=== PATIENT | male | born 1985 | race Caucasian/White ===

== ENCOUNTER 2017-02-20 03:45 | Emergency (ER) | payer SELFPAY ==
[~2017-02-20] VITALS: Ht 177.8 cm; Wt 119.2 kg
[2017-02-20 03:49] VITALS: TEMP 36.7; Ht 177.8 cm; Wt 119.2 kg
[2017-02-20] MEDS ORDERED: ONDANSETRON INJ 2 MG/ML 2 ML VIAL IV STA (03:58)
[2017-02-20] MEDS ORDERED: KETOROLAC TROMETHAMINE 30 MG/ML VIAL IV STA (03:58)
[2017-02-20] MEDS ORDERED: MoRPHine SULFATE 4 MG/ML 1 ML CARP\\VIAL IV ONE (04:00)
[2017-02-20] MEDS ORDERED: SODIUM CHLORIDE 0.9% 1000ML 1,000 ML IV ONE (04:00)
[2017-02-20 04:14] LABS: BASO % 0.1 %; BASO ABS # 0.02 K/uL (0-0.2); COMPLETE YES; EOS % 0.3 %; HEMATOCRIT 40.2 % (42-52); IG% 0.2 %; LYMPH % 8.2 %; LYMPH ABS # 1.33 K/uL (1.2-3.4); MEAN CELL VOLUME 85.2 fL (80-100); MEAN CORPUSCULAR HEMOGLOBIN 30.5 pg (25-34); MEAN CORPUSCULAR HGB CONC 35.8 g/dl (32-36); MEAN PLATELET VOLUME 9.6 fL (7.4-10.4); NEUT % 87.2 %; PLATELET COUNT 283 K/uL (130-400); RED BLOOD COUNT 4.72 M/uL (4.7-6.1); WHITE BLOOD COUNT 16.14 K/uL (4.8-10.8)
[2017-02-20 04:16] LABS: URINE APPEARANCE CLEAR (CLEAR); URINE BILIRUBIN NEG (NEG); URINE COLOR YELLOW; URINE NITRITE NEG (NEG); URINE SPECIFIC GRAVITY 1.024 (1.000-1.030); UROBILINOGEN NEG (NEG); ZZUR CULT IF INDIC CLEAN CATCH NO
[2017-02-20 04:22] LABS: MANUAL MICROSCOPIC REQUIRED? NO; REVIEW REQ? NO
[2017-02-20 04:35] LABS: BUN/CREATININE RATIO 7.7 (10-20); CALCIUM 8.8 mg/dl (8.5-10.1); CREATININE 1.58 mg/dl (0.60-1.40); POTASSIUM 3.8 mmol/L (3.5-5.1)
[2017-02-20 04:38] LABS: ALB/GLOB RATIO 0.8 (0.9-2)
--- NOTE | 2017-02-20 05:05 | EMERGENCY ROOM VISIT NOTE ---
History First contact with patient: 03:52 Chief Complaint: KIDNEY STONE Stated Complaint: KIDNEY PAIN,LOWER STOMACH PAIN History of Present Illness The patient is a 31 year old male who presents to the Emergency Room with complaints of acute onset left flank pain that began spontaneously this evening. Patient states that he has a dull 4/10 pain with intermittent episodes of 10/10 pain. The patient does have a history of right-sided kidney stones, but never a left-sided stone. He states this is similar. He is nauseated without vomiting. No chest pain, chest tightness, shortness of breath. The pain is radiating down into his groin. No dysuria. He has not taken anything [id number] for his symptoms. Review of Systems More than 10 systems were reviewed and otherwise negative with the exception of history of present illness. Past Medical/Surgical History History of kidney stones Social History Smoking Status: Never Smoker Occupation Status: employed Current/Historical Medications Scheduled Ondasetron Odt (Zofran Odt), 4 MG SL Q6H Oxycodone Immediate Rel Tab (Roxicodone Ir), 1-2 TAB PO Q6 Tamsulosin Hcl (Flomax), 0.4 MG PO DAILY Physical Exam Vital Signs Date Time Temp Pulse Resp B/P (MAP) Pulse Ox O2 Delivery O2 Flow Rate FiO2 02/20/17 03:49 36.7 126 20 184/117 97 Room Air Physical Exam VITALS: Vitals are noted on the nurse's note and reviewed by myself. Vital signs stable. GENERAL: Well-developed, well-nourished, white male who appears in moderate discomfort. He is pacing around in the emergency department room. NECK: Supple without nuchal rigidity. No lymphadenopathy. No thyromegaly. Cervical spine is nontender. HEART: Regular rate and rhythm without murmurs gallops or rubs. LUNGS: Clear to auscultation bilaterally without wheezes, rales or rhonchi. No retractions or accessory muscle use. ABDOMEN: Positive normal bowel sounds x 4. Soft, nontender, without masses or organomegaly. No guarding or rebound tenderness. No CVA tenderness. MUSCULOSKELETAL: No muscle atrophy, erythema, or edema noted. Full range of motion without joint tenderness in all extremities. Medical Decision & Procedures ER Provider Diagnostic Interpretation: Preliminary Findings Only See Final Report For Complete Findings CT ABDOMEN & PELVIS Without Contrast: 5 mm distal left ureteral calculus causing mild hydroureteronephrosis. Multiple left intrarenal calculi. Hepatic steatosis. Dense material within an otherwise unremarkable appendix. Laboratory Results 02/20/17 04:00 Red Blood Count 4.72, Mean Corpuscular Volume 85.2, Mean Corpuscular Hemoglobin 30.5, Mean Corpuscular Hemoglobin Concent 35.8, Mean Platelet Volume 9.6, Neutrophils (%) (Auto) 87.2, Lymphocytes (%) (Auto) 8.2, Monocytes (%) (Auto) 4.0, Eosinophils (%) (Auto) 0.3, Basophils (%) (Auto) 0.1, Neutrophils # (Auto) 14.06, Lymphocytes # (Auto) 1.33, Monocytes # (Auto) 0.64, Eosinophils # (Auto) 0.05, Basophils # (Auto) 0.02 02/20/17 04:00 Test 02/20/17 04:00 White Blood Count 16.14 K/uL (4.8-10.8) Red Blood Count 4.72 M/uL (4.7-6.1) Hemoglobin 14.4 g/dL (14.0-18.0) Hematocrit 40.2 % (42-52) Mean Corpuscular Volume 85.2 fL (80-100) Mean Corpuscular Hemoglobin 30.5 pg (25-34) Mean Corpuscular Hemoglobin Concent 35.8 g/dl (32-36) Platelet Count 283 K/uL (130-400) Mean Platelet Volume 9.6 fL (7.4-10.4) Neutrophils (%) (Auto) 87.2 % Lymphocytes (%) (Auto) 8.2 % Monocytes (%) (Auto) 4.0 % Eosinophils (%) (Auto) 0.3 % Basophils (%) (Auto) 0.1 % Neutrophils # (Auto) 14.06 K/uL (1.4-6.5) Lymphocytes # (Auto) 1.33 K/uL (1.2-3.4) Monocytes # (Auto) 0.64 K/uL (0.11-0.59) Eosinophils # (Auto) 0.05 K/uL (0-0.5) Basophils # (Auto) 0.02 K/uL (0-0.2) RDW Standard Deviation 37.9 fL (36.4-46.3) RDW Coefficient of Variation 12.3 % (11.5-14.5) Immature Granulocyte % (Auto) 0.2 % Immature Granulocyte # (Auto) 0.04 K/uL (0.00-0.02) Urine Color YELLOW Urine Appearance CLEAR (CLEAR) Urine pH 5.0 (4.5-7.5) Urine Specific [place] 1.024 (1.000-1.030) Urine Protein TRACE (NEG) Urine Glucose (UA) NEG (NEG) Urine Ketones TRACE (NEG) Urine Occult Blood TRACE (NEG) Urine Nitrite NEG (NEG) Urine Bilirubin NEG (NEG) Urine Urobilinogen NEG (NEG) Urine Leukocyte Esterase NEG (NEG) Urine WBC (Auto) 1-5 /hpf (0-5) Urine RBC (Auto) 0-4 /hpf (0-4) Urine Hyaline Casts (Auto) 1-5 /lpf (0-5) Urine Epithelial Cells (Auto) 10-20 /lpf (0-5) Urine Bacteria (Auto) NEG (NEG) Anion Gap 8.0 mmol/L (3-11) Est Creatinine Clear Calc Drug Dose 89.3 ml/min Estimated GFR () 67.5 Estimated GFR (Non- 58.2 BUN/Creatinine Ratio 7.7 (10-20) Calcium Level 8.8 mg/dl (8.5-10.1) Total Bilirubin 0.4 mg/dl (0.2-1) Aspartate Amino Transf (AST/SGOT) 18 U/L (15-37) Alanine Aminotransferase (ALT/SGPT) 33 U/L (12-78) Alkaline Phosphatase 108 U/L (45-117) Total Protein 8.3 gm/dl (6.4-8.2) Albumin 3.6 gm/dl (3.4-5.0) Globulin 4.7 gm/dl (2.5-4.0) Albumin/Globulin Ratio 0.8 (0.9-2) Lipase 113 U/L (73-393) Medications Administered Medications (Trade) Dose Ordered Sig/Hitesh Route Start Time Stop Time Status Last Admin Dose Admin Sodium Chloride 1,000 ml @ 999 mls/hr Q1H1M ONCE IV 02/20/17 04:00 02/20/17 05:00 DC 02/20/17 04:00 999 MLS/HR Ketorolac Tromethamine (Toradol Inj) 30 mg NOW STAT IV 02/20/17 03:58 02/20/17 03:59 DC 02/20/17 04:09 30 MG Ondansetron HCl (Zofran Inj) 4 mg NOW STAT IV 02/20/17 03:58 02/20/17 03:59 DC 02/20/17 04:09 4 MG ED Course Physical exam and history were performed. Nursing notes, EMR, and Medication List were personally reviewed. Patient appears to have left sided flank pain that began spontaneously. He appears quite comfortable on examination. IV access was established and labs were obtained. The patient was hydrated medicated as above. CT scan was performed. The patient's blood work is as above and was reviewed. He does have a slightly elevated white blood cell count. He does not have significant anemia, bandemia , or gross electrolyte imbalance. She has evidence are not diagnostic. The patient's urine is with blood but no obvious signs of infection with culture pending. CT scan does show a distal 5 mm stone, and this seems to correlate with the patient's clinical presentation. I discussed ongoing care with the patient, including admission to the hospital versus discharge home. The patient would like to try medication at home, and this seems reasonable. He will be given a course of oxycodone, Zofran, and Flomax. He was given information to follow with urology for further management. He was otherwise invited back to the ER with any new, worsening, or concerning symptoms. The chart was completed utilizing [employer] Speech Voice Recognition Software. Grammatical errors, random word insertions, pronoun errors, and incomplete sentences are an occasional consequence of this system due to software limitations, ambient noise, and hardware issues. Any formal questions or concerns about the content, text, or information contained within the body of this dictation should be directly addressed to the provider for clarification. . Medical Decision Differential diagnosis: Etiologies such as renal colic, appendicitis, diverticulitis, mesenteric ischemia, aortic pathology, infections, inflammatory bowel disease, PUD, biliary pathology, UTI, as well as others were entertained. Impression Primary Impression: Left ureteral calculus Departure Information Prescriptions Ondasetron Odt (ZOFRAN ODT) 4 Mg Tab 4 MG SL Q6H for Nausea, #12 TAB Prov: Catalino Nogueira PA-C 02/20/17 Tamsulosin Hcl (FLOMAX) 0.4 Mg Cap 0.4 MG PO DAILY for 7 Days, #7 CAP Prov: Catalino Nogueira PA-C 02/20/17 Oxycodone Immediate Rel Tab (ROXICODONE IR) 5 Mg Tab 1-2 TAB PO Q6 for Pain, #24 TAB Prov: Catalino Nogueira PA-C 02/20/17 Referrals No Doctor, Assigned (PCP) Patient Instructions [facility]
[2017-02-20] MEDS ORDERED: ONDANSETRON HOME PACK 4MG OD TAB PO ONE (05:15)
[2017-02-20] MEDS ORDERED: OXYCODONE IR HOME PACK PO ONE (05:15)
[2017-02-20] MEDS ORDERED: OXYC1TAB3 PO (05:16)
[2017-02-20] MEDS ORDERED: ONDA4TAB10 SL (05:16)
[2017-02-20] MEDS ORDERED: TAMS0.4C38 PO (05:16)
[2017-02-20 05:26] VITALS: BP 161/83; PULSE 91; O2SAT 98
--- NOTE | 2017-02-20 07:12 | DIAGNOSTIC IMAGING REPORT ---
ABDOMEN AND PELVIS CT WITHOUT CONTRAST CT DOSE: 1605.42 mGy.cm HISTORY: Acute left-sided flank pain with history of kidney stones left flank pain TECHNIQUE: Multiaxial CT images of the abdomen and pelvis were performed without contrast. A dose lowering technique was utilized adhering to the principles of ALARA. COMPARISON STUDY: None. FINDINGS: Lung bases are generally clear with the exception of linear subsegmental opacity of the inferior segment lingula suggesting area of pleural-parenchymal scarring. Pleural-based 2 mm nodule of the lateral segment right middle lobe is likely benign. There is no pneumatosis or pneumoperitoneum identified. Imaged inferior cardiac chambers are unremarkable. Fatty infiltration of the liver. The spleen, gallbladder, pancreas and adrenal glands are within normal limits. 2 mm nonobstructing calculus involves the interpolar right kidney with additional 2 mm calculus of the superior pole right kidney. No right-sided ureteral calculi. Urinary bladder is partially collapsed. There are at least 3 nonobstructing calculi of the left kidney, largest of which measures up to 4 mm within the inferior pole. Mild to moderate left-sided hydroureteronephrosis with moderate degree of left. Renal and periureteral inflammatory stranding is noted secondary to a 6 x 4 x 6 mm calculus of the distal left ureter which is present approximately 2.5 cm proximal to the ureterovesicular junction. Aorta is normal in course and caliber. No bulky adenopathy. No bowel obstruction or focal bowel wall thickening. I attenuating material within the appendiceal lumen may reflect appendicolith. No evidence of acute appendicitis. Soft tissues are unremarkable. Bones appear intact. The bones appear mildly demineralized for the patient's stated age. Multilevel endplate degenerative changes are noted which appears advanced for the patient's age. IMPRESSION: 1. Mild to moderate left-sided hydroureteronephrosis secondary to a 6 x 4 x 6 mm calculus of the distal left ureter which is present 2.5 cm proximal to the UVJ. 2. Additional nonobstructing bilateral nephrolithiasis as above. 3. Hepatic steatosis. 4. High attenuating material within a noninflamed appendix may reflect inspissated stool or appendicolith. 5. Multilevel endplate degenerative changes of the thoracic and lumbar spine are advanced for the patient's stated age. Electronically signed by: Jeremy Leavitt M.D. 02/20/2017 7:11 AM Dictated Date/Time: 02/20/2017 7:04 AM
== END 2017-02-20 05:28 | disposition home or self-care (01) ==
LOC: C.EDB 03:46 → C.EDA 05:28
DX: N20.1 Calculus of ureter (principal); Z87.442 Personal history of urinary calculi

== ENCOUNTER 2017-03-13 13:51 | Emergency (ER) | payer SELFPAY ==
[~2017-03-13] VITALS: Ht 177.8 cm; Wt 118.5 kg
[~2017-03-13 13:51] MED LIST: ONDA4TAB10 SL; OXYC1TAB3 PO
[2017-03-13 13:54] VITALS: TEMP 36.5; Ht 177.8 cm; Wt 118.5 kg
[2017-03-13] MEDS ORDERED: MoRPHine SULFATE 10 MG/ML CARP/VIAL IV STA (14:12)
[2017-03-13] MEDS ORDERED: ONDANSETRON INJ 2 MG/ML 2 ML VIAL IV STA (14:12)
[2017-03-13] MEDS ORDERED: SODIUM CHLORIDE 0.9% 1000ML 1,000 ML IV STA (14:12)
[2017-03-13] MEDS ORDERED: MoRPHine SULFATE 2 MG/ML CARP ONE ×2 (14:52→16:07)
[2017-03-13] MEDS ORDERED: MoRPHine SULFATE 4 MG/ML 1 ML CARP\\VIAL ONE ×2 (14:52→16:07)
[2017-03-13 14:57] LABS: BASO % 0.3 %; BASO ABS # 0.04 K/uL (0-0.2); COMPLETE YES; EOS % 1.1 %; HEMATOCRIT 38.2 % (42-52); IG% 0.3 %; LYMPH % 15.3 %; LYMPH ABS # 2.03 K/uL (1.2-3.4); MEAN CELL VOLUME 84.1 fL (80-100); MEAN CORPUSCULAR HEMOGLOBIN 30.6 pg (25-34); MEAN CORPUSCULAR HGB CONC 36.4 g/dl (32-36); MEAN PLATELET VOLUME 9.8 fL (7.4-10.4); MONO % 7.2 %; NEUT % 75.8 %; PLATELET COUNT 257 K/uL (130-400); RED BLOOD COUNT 4.54 M/uL (4.7-6.1); WHITE BLOOD COUNT 13.26 K/uL (4.8-10.8)
[2017-03-13 15:18] LABS: BUN/CREATININE RATIO 8.4 (10-20); CALCIUM 8.8 mg/dl (8.5-10.1); CREATININE 1.65 mg/dl (0.60-1.40); POTASSIUM 3.6 mmol/L (3.5-5.1)
--- NOTE | 2017-03-13 15:26 | DIAGNOSTIC IMAGING REPORT ---
CT OF THE ABDOMEN AND PELVIS WITHOUT CONTRAST, STONE PROTOCOL CLINICAL HISTORY: Left flank pain and hematuria. COMPARISON STUDY: CT of the abdomen and pelvis February 20, 2017. TECHNIQUE: Helical axial images of the abdomen and pelvis were obtained without IV or oral contrast according to renal stone protocol. A dose lowering technique was utilized adhering to the principles of ALARA. FINDINGS: A 6 mm x 4 mm distal left ureteral calculus is unchanged in position since CT of February 20, 2017. Mild left hydroureteronephrosis with perinephric infiltration is similar to prior exam. Several left renal calculi measure up to 4 mm. There is a punctate right renal calculus. There are no right ureteral calculi. There are no bladder calculi. Fatty infiltration of the liver is noted. Unenhanced images of the spleen, adrenal glands and pancreas are normal. There is no evidence for a bowel obstruction. There is hyperdense material within the appendix without evidence for acute appendicitis. There is no lymphadenopathy. No suspicious skeletal lesions are present. IMPRESSION: 1. No change in position of a 6 mm x 4 mm distal left ureteral calculus since CT of February 20, 2017. Stable mild left hydroureteronephrosis with perinephric infiltration. 2. Bilateral nephrolithiasis. 3. Fatty liver. Electronically signed by: Ulises Valadez M.D. 03/13/2017 3:25 PM Dictated Date/Time: 03/13/2017 3:19 PM
[2017-03-13 15:31] LABS: URINE APPEARANCE CLEAR (CLEAR); URINE BILIRUBIN NEG (NEG); URINE COLOR YELLOW; URINE NITRITE NEG (NEG); URINE SPECIFIC GRAVITY 1.019 (1.000-1.030); UROBILINOGEN NEG (NEG)
[2017-03-13 15:54] LABS: MANUAL MICROSCOPIC REQUIRED? NO; REVIEW REQ? NO
[2017-03-13] MEDS ORDERED: ONDA4TAB46 PO (16:45)
[2017-03-13] MEDS ORDERED: HYDR-5688 PO (16:45)
[2017-03-13 17:02] VITALS: BP 148/109; PULSE 97; O2SAT 100
--- NOTE | 2017-03-14 10:19 | EMERGENCY ROOM VISIT NOTE ---
ED Visit Note First contact with patient: 14:00 Chief Complaint: Left flank and abdominal pain. History of Present Illness: Mr. Segura is a 31 year-old white male who ambulates into the ED accompanied by female friend complaining of left flank pain. Historically patient reports he has a history of nephrolithiasis and has passed 2 calculus prior to arrival today at the hospital. Patient reports acute onset of left flank pain that started approximately 11 hours ago. Since that time the pain has been constant but has waxed and waned in intensity. Currently he rates his discomfort 7/10 but does report his pain has been as high as 9/10. The pain is radiating around the abdomen and into the left lower quadrant. He has not identified any aggravating or alleviating factors related to the pain. He reports he took Flomax for his discomfort without relief. Associated with his pain he reports he has been nauseated and has had multiple episodes of vomiting and he has had chills during vomiting but no braulio fevers. Patient denies skin eruptions, skin color changes, upper respiratory tract symptoms, shortness of breath, chest pain, diarrhea, constipation, rectal bleeding, black/tarry stools, urinary symptoms, hematuria, genital paresthesias , bowel and bladder dysfunction, lower extremity weakness/numbness/tingling. Review of Systems: As noted above in history of present illness. All body systems were reviewed and found to be negative as noted above. Past Medical History: As previously noted. Current Medications: Flomax. Allergies to Medications: Patient denies. Social History: Patient is currently employed; he feels safe in his home environment; he admits to tobacco use and denies alcohol use. Physical Examination: Vital Signs: Date Time Temp Pulse Resp B/P (MAP) Pulse Ox O2 Delivery O2 Flow Rate FiO2 03/13/17 17:02 97 20 148/109 100 03/13/17 16:30 117 03/13/17 16:11 100 17 146/106 96 03/13/17 13:54 36.5 124 18 159/114 97 Room Air GENERAL: 31-year-old male in mild to moderate distress due to pain, nontoxic- appearing, afebrile and hemodynamically stable. NEUROLOGICAL: Awake, alert and oriented to person, place and time. Answering questions appropriately and following commands. Normal gait. Good hand eye coordination. SKIN: Warm, dry and pink. No soft tissue eruptions or trauma noted. HEENT: Atraumatic and normocephalic. PERRLA. Sclera white and conjunctiva pink. Oral cavity moist and pink. Pharynx is nonerythematous or edematous. Speech normal. No lymphadenopathy. Trachea midline. No jugular venous distention. BACK: No tenderness over the bony spine. No CVA tenderness. THORAX: Lungs sounds are clear to auscultation and equal bilaterally with symmetrical chest wall. No wheezing, rales or rhonchi. No crepitus, tenderness , subcutaneous air or deformities noted. HEART: Regular rate and rhythm. No gallops, rubs or murmurs are appreciated. ABDOMEN: Flat, soft and nontender. Positive bowel sounds in all quadrants. No guarding, rigidity or organomegaly. EXTREMITIES: Moves all extremities well on command and with purpose. All distal neurovascular statuses are intact and equal bilaterally. ED Course: Patient is assessed as noted above. Laboratory Testing: Test 03/13/17 14:25 03/13/17 15:00 Range/Units White Blood Count 13.26 4.8-10.8 K/uL Red Blood Count 4.54 4.7-6.1 M/uL Hemoglobin 13.9 14.0-18.0 g/dL Hematocrit 38.2 42-52 % Mean Corpuscular Volume 84.1 80-100 fL Mean Corpuscular Hemoglobin 30.6 25-34 pg Mean Corpuscular Hemoglobin Concent 36.4 32-36 g/dl Platelet Count 257 130-400 K/uL Mean Platelet Volume 9.8 7.4-10.4 fL Neutrophils (%) (Auto) 75.8 % Lymphocytes (%) (Auto) 15.3 % Monocytes (%) (Auto) 7.2 % Eosinophils (%) (Auto) 1.1 % Basophils (%) (Auto) 0.3 % Neutrophils # (Auto) 10.06 1.4-6.5 K/uL Lymphocytes # (Auto) 2.03 1.2-3.4 K/uL Monocytes # (Auto) 0.95 0.11-0.59 K/uL Eosinophils # (Auto) 0.14 0-0.5 K/uL Basophils # (Auto) 0.04 0-0.2 K/uL RDW Standard Deviation 36.9 36.4-46.3 fL RDW Coefficient of Variation 12.1 11.5-14.5 % Immature Granulocyte % (Auto) 0.3 % Immature Granulocyte # (Auto) 0.04 0.00-0.02 K/uL Sodium Level 137 136-145 mmol/L Potassium Level 3.6 3.5-5.1 mmol/L Chloride Level 103 98-107 mmol/L Carbon Dioxide Level 25 21-32 mmol/L Anion Gap 9.0 3-11 mmol/L Blood Urea Nitrogen 14 7-18 mg/dl Creatinine 1.65 0.60-1.40 mg/dl Est Creatinine Clear Calc Drug Dose 85.2 ml/min Estimated GFR () 64.1 Estimated GFR (Non- 55.3 BUN/Creatinine Ratio 8.4 10-20 Random Glucose 97 70-99 mg/dl Calcium Level 8.8 8.5-10.1 mg/dl Total Bilirubin 0.5 0.2-1 mg/dl Direct Bilirubin 0.1 0-0.2 mg/dl Aspartate Amino Transf (AST/SGOT) 20 15-37 U/L Alanine Aminotransferase (ALT/SGPT) 34 12-78 U/L Alkaline Phosphatase 105 45-117 U/L Total Protein 8.0 6.4-8.2 gm/dl Albumin 3.6 3.4-5.0 gm/dl Lipase 101 73-393 U/L Urine Color YELLOW Urine Appearance CLEAR CLEAR Urine pH 5.0 4.5-7.5 Urine Specific [place] 1.019 1.000-1.030 Urine Protein NEG NEG Urine Glucose (UA) NEG NEG Urine Ketones NEG NEG Urine Occult Blood NEG NEG Urine Nitrite NEG NEG Urine Bilirubin NEG NEG Urine Urobilinogen NEG NEG Urine Leukocyte Esterase NEG NEG Noncontrast Abdominal/Pelvic CT: Was reviewed by myself and read by the radiologist showing a 6 x 4 mm left distal ureter calculus with stable mild left hydroureter nephrosis and perinephric stranding. Similar to previous study on February 20. Patient was hydrated with normal saline and received a total of 12 mg of morphine IV for pain and 4 mg of Zofran IV. Patient was reassessed multiple times during his stay in the emergency department. Patient's case was reviewed with Dr. Pastrana; we agreed on diagnostic approach , treatment, disposition and plan. Patient's case was consulted with Dr. Johnny Worley, urologist; is recommended including discharged home and follow-up in office fit for definitive care and treatment. Patient was educated about today's findings and instructed on his treatment plan ; he verbalized understanding and agreement with this plan. Clinical Impression: Left ureter calculus. Decision-Making: Initially my differential diagnosis I considered ureter calculus, constipation, diverticulitis, pyelonephritis and other causes. Disposition: Patient discharged home in stable condition; prior to departure he was reassessed and rated his discomfort 03/27. Plan: Patient was placed on a sliding pain scale of ibuprofen, acetaminophen and [place] ; he was given appropriate narcotic precautions and his name was checked in the state database and no red flags were noted. Patient was given a prescription for Zofran and instructed on achieves. Patient was urged to continue his current medications. Patient was encouraged to strain all urine and collect all stones for analysis. Patient was encouraged to follow-up with Dr. Worley for definitive care and treatment. Patient was encouraged return ED for worsening/uncontrolled pain, uncontrolled vomiting, fevers, urinary symptoms or any new/concerning symptoms.
== END 2017-03-13 17:07 | disposition home or self-care (01) ==
LOC: C.EDB 13:52
DX: N20.1 Calculus of ureter (principal); R11.2 Nausea with vomiting, unspecified; Z87.442 Personal history of urinary calculi; F17.200 Nicotine dependence, unspecified, uncomplicated

== ENCOUNTER 2023-11-03 13:03 | Inpatient (IN) ==
[2023-11-03] MEDS: LABETALOL HCL IV 5 MG/ML 20ML IV STA (13:33)
--- NOTE | 2023-11-03 13:36 | Emergency Department Note ---
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 The patient describes the left arm weakness as well as left-sided numbness that began yesterday. He states the symptoms began about 10 AM yesterday. The patient denies having any chest pain or difficulty breathing at this time. He denies having any lower extremity weakness or pain. The patient does not go to the doctor very often. The patient was brought to the emergency department by family for further evaluation. Normally the patient takes no prescription medications. He did have right sided eye pain initially when the symptoms started but no eye pain at this time. The patient's family member state he has episodes of confusion as well at times. ROS: See above HPI for pertinent positives & negatives. A total of 10 systems reviewed and were otherwise negative. PAST MEDICAL HISTORY: See Below PAST SURGICAL HISTORY: See Below FAMILY HISTORY: See Below SOCIAL HISTORY: See Below HOME MEDICATIONS: See Below ALLERGIES: See Below VITALS: See Below PHYSICAL EXAMINATION: GENERAL: Patient is awake alert in no acute distress patient is resting comfortably and showing no signs of anxiety EYES: The conjunctivae are clear. The pupils are round and reactive. EARS, NOSE, MOUTH AND THROAT: The nose is without any evidence of any deformity. NECK: The neck is nontender and supple. RESPIRATORY: Normal respiratory effort is noted there is no evidence of wheezing rhonchi or rales CARDIOVASCULAR: Regular rate and rhythm noted there no murmurs rubs or gallops normal S1 normal S2. GASTROINTESTINAL: The abdomen is soft. Abdomen is nontender. PELVIS: The Pelvis is stable. No tenderness to palpation is noted. BACK: No midline tenderness or or step-off noted range of motion in flexion extension as well as rotation no signs of muscle spasm noted MUSCULOSKELETAL/EXTREMITIES: There is no evidence of gross deformity full range of motion is noted in the hips and shoulders. SKIN: There is no obvious evidence of any rash. There are no petechiae, pallor or cyanosis noted. NEUROLOGIC: Patient is awake alert and oriented x3. Patellar tendon reflexes are 2+ bilaterally. The patient is able to hold each leg off of the bed for greater than 5 seconds. There is weakness to transformer assembler strength as well as a drift in the left upper extremity. MEDICAL DECISION MAKING: The patient is a 38-year-old male who presented to the emergency department for strokelike symptoms. The patient presented to the emergency department greater than 24 hours after the last known well time. He did have a physical exam was consistent with possible stroke. For this reason further laboratory and radiographic studies were obtained. The patient was found to have an elevated blood pressure in the emergency department on multiple occasions. He was treated with IV labetalol by myself. I discussed the patient's laboratory and radiographic studies with him and his family members. I also discussed his condition with the on-call [facility] hospitalist as well as the on-call [facility] neurologist as well [facility]. The patient was given aspirin Brilinta and atorvastatin at the request of the [facility] neurologist. The patient did have an MRI as well. The patient was not a candidate for TNK given his last known well time. I also felt that he would not be a candidate for mechanical thrombectomy given the amount of brain already involved on CAT scan as well as MRI. Triage Nursing notes reviewed. Prior medical records reviewed Vital Signs: reviewed and remarkable for elevated blood pressure. Differential diagnosis: Infection, dehydration, metabolic abnormality, hypo/hyperglycemia, electrolyte disturbance, anemia, hypoxia, cardiac sources, intracerebral event, toxicologic, neurologic, as well as other pathologies. ER treatment provided: See below Diagnostics interpreted by me: ECG: ED EG was obtained in the emergency department. My interpretation is normal sinus rhythm at 68 bpm. There was no ectopy. Nonspecific ST and T wave abnormalities were noted. LVH was suggested by voltage criteria. No previous tracing was available. Cardiac Monitoring: An order was placed for continuous cardiac monitoring. The monitor shows a rate of 61 bpm with sinus rhythm. Laboratory studies: As stated above and show below. Imaging studies: See below. Radiographic imaging was reviewed by myself Consultation(s): I discussed this case with Dr. Santos who is on-call for the [facility] hospitalist group. I discussed this case with Dr. Morales who is on for [facility] neurology. I discussed this case with Dr. Stack who is on for the [facility] telestroke neurology group. She recommended aspirin as well as Brilinta load. She also recommended blood pressure control with labetalol for any blood pressure over 220/110. She also recommended head of bed down. She also recommended we get a stat MRI. ED COURSE: Procedures: none Critical Care: I have personally spent greater than 45 minutes of critical care time in the direct management of this patient. This includes bedside care, interpretation of diagnostic studies, and testing, discussion with consultants, patient, and family members, and other required patient management activities. This 45 minutes is in excess of all separately billable procedures. 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 (Acute) Ischemic cerebrovascular accident (CVA) (Acute) Social History Smoking Status: Former smoker Tobacco Type: Cigarettes Preferred Language: Com[place] Feels Safe at Home: Yes Allergies Allergies Allergy/AdvReac Type Severity Reaction Status Date / Time garlic Allergy Intermediate hives Verified 11/03/23 15:37 nickel Allergy Intermediate hives Verified 11/03/23 15:37 Home Meds Home Medications Medication Instructions Recorded Confirmed No Known Home Medications 11/03/23 11/03/23 Results & Data (ED) Vital Signs Vital Signs - 24 hr 11/03/23 13:16 11/03/23 13:17 11/03/23 13:33 Temperature 36.8 C Temperature Source Oral Pulse Rate 89 80 64 Pulse Rate [Finger] Respiratory Rate 14 Blood Pressure 227/133 H 207/117 H Blood Pressure [Right Arm] Blood Pressure Mean 164 Blood Pressure Mean [Right Arm] Pulse Oximetry 98 Oxygen Delivery Method Room Air Sepsis Recent Fever Within 48 Hours No Sepsis New/Unexplained Change in Mental Status No Sepsis Action Taken by Nursing No Action Required 11/03/23 14:06 Temperature Temperature Source Pulse Rate Pulse Rate [Finger] 61 Respiratory Rate 16 Blood Pressure Blood Pressure [Right Arm] 216/116 H Blood Pressure Mean Blood Pressure Mean [Right Arm] 149 Pulse Oximetry 97 Oxygen Delivery Method Room Air Sepsis Recent Fever Within 48 Hours Sepsis New/Unexplained Change in Mental Status Sepsis Action Taken by Long-Term Medications Current Medication List: was personally reviewed by me Laboratory Data Attestation: I reviewed the patient's lab results. 11/03/23 13:36 11/03/23 13:36 Lab Results 11/03/23 11/03/23 Range/Units 13:36 13:41 WBC 8.61 (4.8-10.8) K/ul RBC 4.76 (4.70-6.10) M/uL Hgb 13.5 L (14.0-18.0) g/dl POC Hgb 13.6 L (14.0-18.0) g/dl Hct 39.4 L (42.0-52.0) % POC Hct 40 L (42-52) % MCV 82.8 (80.0-100.0) fL MCH 28.4 (25.0-34.0) pg MCHC 34.3 (32.0-36.0) g/dL RDW Std Deviation 37.4 (36.4-46.3) fL RDW Coeff of Lanre 12.3 (11.5-14.5) % Plt Count 273 (130-400) K/uL MPV 10.8 (9.4-12.4) fL Immature Gran % (Auto) 0.3 % Neut % (Auto) 78.2 % Lymph % (Auto) 14.8 % [place] % (Auto) 5.1 % Eos % (Auto) 0.9 % Baso % (Auto) 0.7 % Neut # (Auto) 6.73 H (1.40-6.50) K/uL Lymph # (Auto) 1.27 (1.20-3.40) K/uL [place] # (Auto) 0.44 (0.11-0.59) K/uL Eos # (Auto) 0.08 (0.00-0.50) K/uL Baso # (Auto) 0.06 (0.00-0.20) K/uL Immature Gran # (Auto) 0.03 (0.01-0.20) K/uL PT 11.1 (9.0-12.0) Seconds INR 1.0 (0.9-1.1) APTT 27 (21-31) Seconds PTT Ratio 1.0 POC Sodium 141 (135-144) mmol/L Sodium 138 (136-145) mmol/L POC Potassium 4.0 (3.3-5.0) mmol/L Potassium 3.9 (3.5-5.1) mmol/L POC Chloride 104 (101-112) mmol/L Chloride 104 (98-107) mmol/L Carbon Dioxide 27 (21-32) mmol/L POC Total CO2 24 (24-31) mmol/L Anion Gap 7 (3-11) POC Anion Gap 18.0 (16-25) mmol/L POC BUN 16 (7-18) mg/dl BUN 17 (6-23) mg/dl Creatinine 1.42 H (0.6-1.4) mg/dl POC Creatinine 1.5 H (0.6-1.3) mg/dl Est Cr Clr Drug Dosing 92.5 ml/min Est GFR ( Amer) 73.1 ml/min Est GFR (Non-Af Amer) 63.1 ml/min BUN/Creatinine Ratio 12.0 (10-20) Glucose 149 H (70-99(Fasting)) mg/dl POC Glucose (other) 148 H (70-99) mg/dl Calcium 9.7 (8.6-10.3) mg/dl POC Ioniz Calcium Dimitry 1.21 (1.12-1.32) mmol/l Magnesium 1.8 (1.7-2.4) mg/dl Total Bilirubin 0.6 (0.2-1.0) mg/dl AST 14 (13-39) U/L ALT 12 (7-52) U/L Alkaline Phosphatase 100 (34-104) U/L Troponin I High Sens 17.8 (0-20) pg/ml Total Protein 7.8 (6.0-8.3) gm/dl Albumin 4.2 (3.4-5.0) gm/dl Globulin 3.6 (2.5-4.0) gm/dl Albumin/Globulin Ratio 1.2 (0.9-2) Administered Medications Discontinued Medications Aspirin (Aspirin Chew 324 Mg) 324 mg PO NOW STA Stop: 11/03/23 17:46 Last Admin: 11/03/23 18:03 Dose: 324 mg Documented By: TIMUR Ioversol (Optiray 320 125ml) 119 ml IV ONCE ONE Stop: 11/03/23 14:50 Last Admin: 11/03/23 14:51 Dose: 119 ml Documented By: CONSTANTINO Labetalol HCl (Labetalol Hcl Iv 5 Mg/Ml 20ml) 10 mg IV NOW STA Stop: 11/03/23 13:23 Last Admin: 11/03/23 13:33 Dose: 10 mg Documented By: VERONICA Imaging Data Attestation: I personally reviewed and interpreted this imaging study as follows: My Impression: 1 view chest x-ray was obtained in the emergency department. My interpretation is no free air or definite infiltrate, final report below. CT of the brain was obtained in the emergency department. My interpretation is changes in the posterior right cerebral hemisphere consistent with ischemic stroke, there is no bleed, final report below. Radiologist's Impression: Chest X-Ray 11/03/23 13:22 XR chest 1V portable HISTORY: neuro deficit, acute stroke suspected COMPARISON: None. FINDINGS: No pneumothorax. No pleural effusions. The heart is mildly enlarged. The lungs are clear. No evidence for pulmonary edema. No acute fractures. IMPRESSION: Mild cardiomegaly. Otherwise, no acute process within the chest. ACT 112: Negative or not required by law. Electronically signed by: Arnulfo Mccarthy M.D. 11/03/2023 3:[address] 11/03/23 13:[address] DOSE: 1378.48 mGy.cm HISTORY: Left-sided numbness. neuro deficit, acute stroke suspected TECHNIQUE: Multiaxial CT images of the head were performed without the use of intravenous contrast. Automated exposure control was utilized for this study. A dose lowering technique was utilized adhering to the principles of ALARA. Comparison: None. Findings: The paranasal sinuses and mastoid air cells are clear. Mild motion artifact. The calvarium and skull base are intact. There is no mass, hematoma, or midline shift. The ventricles are normal in size. There is a large hypodense area involving the majority of the posterior medial aspect of the right temporal lobe and right occipital lobe. This measures approximately 7.9 x 3.6 cm and is consistent with a right TMD TEACHER territory infarct Impression: 1. An acute right TMD TEACHER territory infarct. 2. No intracranial hemorrhage or midline shift. ACT 112: Negative or not required by law. Electronically signed by: Arnulfo Mccarthy M.D. 11/03/2023 3:37 PM Head CTA 11/03/23 13:22 HEAD & NECK CTA HISTORY: Left-sided weakness neuro deficit, acute stroke suspected TECHNIQUE: Multiaxial CT images of the head were performed following the intravenous administration of contrast to evaluate the major cerebral vessels. Multiaxial CT images of the neck were also performed following the intravenous administration of contrast to evaluate the major cervical vessels. 3D/MIP images were also obtained. Sagittal and coronal reformats were reviewed. A dose lowering technique was utilized adhering to the principles of ALARA. COMPARISON: Head CT 11/03/2023. FINDINGS: There is an acute right TMD TEACHER territory infarct again noted. The distal vertebral arteries, basilar artery, and intracranial internal carotid arteries are widely patent. The bilateral ACAs, MCAs, and left TMD TEACHER show no significant stenosis, occlusion, or aneurysm. Multifocal moderate to severe narrowing within the proximal right TMD TEACHER with a focal area of occlusion best seen on image 148. There is diminished perfusion within the mid to distal right TMD TEACHER corresponding to the patient's right TMD TEACHER territory infarct. . The major dural venous sinuses are patent. The aortic arch and proximal great vessels are widely patent. There is no significant stenosis, occlusion, or dissection identified within the bilateral common carotid, internal carotid, or vertebral arteries. IMPRESSION: 1. Multifocal moderate to severe narrowing within the proximal right TMD TEACHER with a focal area of occlusion as described above. There is diminished perfusion within the mid to distal right TMD TEACHER corresponding to the patient's acute right TMD TEACHER territory infarct. 2. No significant stenosis, occlusion, or dissection identified within the carotid or vertebral arteries. ACT 112: Negative or not required by law. Electronically signed by: Arnulfo Mccarthy M.D. 11/03/2023 3:43 PM Neck CTA 11/03/23 13:22 HEAD & NECK CTA HISTORY: Left-sided weakness neuro deficit, acute stroke suspected TECHNIQUE: Multiaxial CT images of the head were performed following the intravenous administration of contrast to evaluate the major cerebral vessels. Multiaxial CT images of the neck were also performed following the intravenous administration of contrast to evaluate the major cervical vessels. 3D/MIP images were also obtained. Sagittal and coronal reformats were reviewed. A dose lowering technique was utilized adhering to the principles of ALARA. COMPARISON: Head CT 11/03/2023. FINDINGS: There is an acute right TMD TEACHER territory infarct again noted. The distal vertebral arteries, basilar artery, and intracranial internal carotid arteries are widely patent. The bilateral ACAs, MCAs, and left TMD TEACHER show no significant stenosis, occlusion, or aneurysm. Multifocal moderate to severe narrowing within the proximal right TMD TEACHER with a focal area of occlusion best seen on image 148. There is diminished perfusion within the mid to distal right TMD TEACHER corresponding to the patient's right TMD TEACHER territory infarct. . The major dural venous sinuses are patent. The aortic arch and proximal great vessels are widely patent. There is no significant stenosis, occlusion, or dissection identified within the bilateral common carotid, internal carotid, or vertebral arteries. IMPRESSION: 1. Multifocal moderate to severe narrowing within the proximal right TMD TEACHER with a focal area of occlusion as described above. There is diminished perfusion within the mid to distal right TMD TEACHER corresponding to the patient's acute right TMD TEACHER territory infarct. 2. No significant stenosis, occlusion, or dissection identified within the carotid or vertebral arteries. ACT 112: Negative or not required by law. Electronically signed by: Arnulfo Mccarthy M.D. 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
[2023-11-03 13:54] LABS: iSTAT Creatinine 1.5 mg/dl (0.6-1.3); iSTAT Hemoglobin 13.6 g/dl (14.0-18.0); iSTAT Ionized Calcium 1.21 mmol/l (1.12-1.32)
[2023-11-03 13:58] LABS: Basophils # (auto) 0.06 K/uL (0.00-0.20); Basophils % (auto) 0.7 %; Eosinophils # (auto) 0.08 K/uL (0.00-0.50); Eosinophils % (auto) 0.9 %; Hematocrit (blood only) 39.4 % (42.0-52.0); Hemoglobin 13.5 g/dl (14.0-18.0); Immature Granulocytes # (auto) 0.03 K/uL (0.01-0.20); Immature Granulocytes % (auto) 0.3 %; Lymphocytes # (auto) 1.27 K/uL (1.20-3.40); Lymphocytes % (auto) 14.8 %; Mean Corpuscular Hemoglobin 28.4 pg (25.0-34.0); Mean Corpuscular Hgb Conc 34.3 g/dL (32.0-36.0); Mean Corpuscular Volume 82.8 fL (80.0-100.0); Mean Platelet Volume 10.8 fL (9.4-12.4); Monocytes # (auto) 0.44 K/uL (0.11-0.59); Monocytes % (auto) 5.1 %; Neutrophils # (auto) 6.73 K/uL (1.40-6.50); Neutrophils % (auto) 78.2 %; Platelet Count 273 K/uL (130-400); RDW Coefficient of Variation 12.3 % (11.5-14.5); RDW Standard Deviation 37.4 fL (36.4-46.3); Red Blood Count 4.76 M/uL (4.70-6.10); White Blood Count 8.61 K/ul (4.8-10.8)
[2023-11-03 14:17] LABS: Albumin Globulin Ratio 1.2 (0.9-2); Albumin Level 4.2 gm/dl (3.4-5.0); Bilirubin,Total 0.6 mg/dl (0.2-1.0); Calcium 9.7 mg/dl (8.6-10.3); Creatinine Clr Calc Pharmacy 92.5 ml/min; Est GFR (African American) 73.1 ml/min; Est GFR (Non-African American) 63.1 ml/min; Globulin 3.6 gm/dl (2.5-4.0); Magnesium 1.8 mg/dl (1.7-2.4); Potassium 3.9 mmol/L (3.5-5.1); Total Protein 7.8 gm/dl (6.0-8.3)
[2023-11-03 14:23] LABS: Troponin I High Sensitivity 17.8 pg/ml (0-20)
[2023-11-03 14:26] LABS: Partial Thromboplastin Time 27 Seconds (21-31); Prothrombin Time 11.1 Seconds (9.0-12.0)
[2023-11-03] MEDS: OPTIRAY 320 125ml IV ONE (14:51)
--- NOTE | 2023-11-03 15:01 | XRay Report ---
XR chest 1V portable HISTORY: neuro deficit, acute stroke suspected COMPARISON: None. FINDINGS: No pneumothorax. No pleural effusions. The heart is mildly enlarged. The lungs are clear. N o evidence for pulmonary edema. No acute fractures. IMPRESSION: Mild cardiomegaly. Otherwise, no acute process within the chest. ACT 112: Negative or not required by law. Electronically signed by: Arnulfo Mccarthy M.D. 11/03/2023 3:00 PM
--- NOTE | 2023-11-03 15:39 | CT Scan Report ---
HEAD CT NONCONTRAST CT DOSE: 1378.48 mGy.cm HISTORY: Left-sided numbness. neuro deficit, acute stroke suspected TECHNIQUE: Multiaxial CT images of the head were performed without the use of intravenous contrast. A utomated exposure control was utilized for this study. A dose lowering technique was utilized adheri ng to the principles of ALARA. Comparison: None. Findings: The paranasal sinuses and mastoid air cells are clear. Mild motion artifact. The calvarium and skull base are intact. There is no mass, hematoma, or midline shift. The ventricles are normal in size. There is a large hypodense area involving the majority of the posterior medial aspect of the r ight temporal lobe and right occipital lobe. This measures approximately 7.9 x 3.6 cm and is consiste nt with a right SOLAR DESIGN ENGINEER territory infarct Impression: 1. An acute right SOLAR DESIGN ENGINEER territory infarct. 2. No intracranial hemorrhage or midline shift. ACT 112: Negative or not required by law. Electronically signed by: Arnulfo Mccarthy M.D. 11/03/2023 3:37 PM
--- NOTE | 2023-11-03 15:45 | CT Scan Report ---
HEAD & NECK CTA HISTORY: Left-sided weakness neuro deficit, acute stroke suspected TECHNIQUE: Multiaxial CT images of the head were performed following the intravenous administration o f contrast to evaluate the major cerebral vessels. Multiaxial CT images of the neck were also perform ed following the intravenous administration of contrast to evaluate the major cervical vessels. 3D/TN P images were also obtained. Sagittal and coronal reformats were reviewed. A dose lowering technique was utilized adhering to the principles of ALARA. COMPARISON: Head CT 11/03/2023. FINDINGS: There is an acute right CUTTING MACHINE FIXER territory infarct again noted. The distal vertebral arteries, basilar art nahun, and intracranial internal carotid arteries are widely patent. The bilateral ACAs, MCAs, and left CUTTING MACHINE FIXER show no significant stenosis, occlusion, or aneurysm. Multifocal moderate to severe narrowing wi thin the proximal right CUTTING MACHINE FIXER with a focal area of occlusion best seen on image 148. There is diminishe d perfusion within the mid to distal right CUTTING MACHINE FIXER corresponding to the patient's right CUTTING MACHINE FIXER territory inf arct. . The major dural venous sinuses are patent. The aortic arch and proximal great vessels are widely patent. There is no significant stenosis, occ lusion, or dissection identified within the bilateral common carotid, internal carotid, or vertebral arteries. IMPRESSION: 1. Multifocal moderate to severe narrowing within the proximal right CUTTING MACHINE FIXER with a focal area of occlusi on as described above. There is diminished perfusion within the mid to distal right CUTTING MACHINE FIXER corresponding to the patient's acute right CUTTING MACHINE FIXER territory infarct. 2. No significant stenosis, occlusion, or dissection identified within the carotid or vertebral arter ies. ACT 112: Negative or not required by law. Electronically signed by: Arnulfo Mccarthy M.D. 11/03/2023 3:43 PM
--- NOTE | 2023-11-03 15:45 | CT Scan Report ---
HEAD & NECK CTA HISTORY: Left-sided weakness neuro deficit, acute stroke suspected TECHNIQUE: Multiaxial CT images of the head were performed following the intravenous administration o f contrast to evaluate the major cerebral vessels. Multiaxial CT images of the neck were also perform ed following the intravenous administration of contrast to evaluate the major cervical vessels. 3D/OR P images were also obtained. Sagittal and coronal reformats were reviewed. A dose lowering technique was utilized adhering to the principles of ALARA. COMPARISON: Head CT 11/03/2023. FINDINGS: There is an acute right MAINS AND SERVICE SUPERVISOR territory infarct again noted. The distal vertebral arteries, basilar art nahun, and intracranial internal carotid arteries are widely patent. The bilateral ACAs, MCAs, and left MAINS AND SERVICE SUPERVISOR show no significant stenosis, occlusion, or aneurysm. Multifocal moderate to severe narrowing wi thin the proximal right MAINS AND SERVICE SUPERVISOR with a focal area of occlusion best seen on image 148. There is diminishe d perfusion within the mid to distal right MAINS AND SERVICE SUPERVISOR corresponding to the patient's right MAINS AND SERVICE SUPERVISOR territory inf arct. . The major dural venous sinuses are patent. The aortic arch and proximal great vessels are widely patent. There is no significant stenosis, occ lusion, or dissection identified within the bilateral common carotid, internal carotid, or vertebral arteries. IMPRESSION: 1. Multifocal moderate to severe narrowing within the proximal right MAINS AND SERVICE SUPERVISOR with a focal area of occlusi on as described above. There is diminished perfusion within the mid to distal right MAINS AND SERVICE SUPERVISOR corresponding to the patient's acute right MAINS AND SERVICE SUPERVISOR territory infarct. 2. No significant stenosis, occlusion, or dissection identified within the carotid or vertebral arter ies. ACT 112: Negative or not required by law. Electronically signed by: Arnulfo Mccarthy M.D. 11/03/2023 3:43 PM
--- NOTE | 2023-11-03 16:12 | History & Physical Report ---
Date of Service November 03, 2023 Assessment & Plan (1) Ischemic cerebrovascular accident (CVA): Plan: Acute large territory R GROVE SUPERINTENDENT CVA CTAhead and neck: Moderate to severe narrowing within the proximal right GROVE SUPERINTENDENT with focal area of occlusion, diminished perfusion within mid to distal right GROVE SUPERINTENDENT corresponds to acute right GROVE SUPERINTENDENT infarct. - CThead: Acute right GROVE SUPERINTENDENT infarct - Chest x-ray: No acute findings Case was discussed with ER provider. Aspirin not yet given. Given relatively large territory potentially involved and young age discussed with neurology and subsequently recommended for [facility] tertiary evaluation to determine antiplatelet r ecommendations, whether permissive hypertension parameters should be modified to SBP goal 200, and for further evaluation. Case was reviewed by [facility] neurosurgery. Recommended aspirin and Brilinta and DAPT load, and atorvastatin stat code and then continue on DAPT with aspirin and Brilinta. Did recommend keeping recommended permissive hypertension parameters of systolic 220/diastolic 120, labetalol on-call as needed MRI stat obtained. Large acute R GROVE SUPERINTENDENT territory involved. Recommended to have repeat CT in 24 hours from aspirin/Brilinta load to reevaluate for any hemorrhagic transformation. Also recommended hypercoagulable panel including homocystine. Continue aspirin 81 mg daily, ticagrelor 90 mg twice daily Labetalol on-call as needed for permissive hypertension 220/120 Repeat CThead 11/03 at approximately 6 PM Reviewed with patient, and his family. Reviewed risks of hemorrhagic transformation w/ large stroke involved to which they expressed an understanding. Admitted to PCU. 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 No chest pain, chest pressure, shortness of breath, dyspnea. Does some transient right eye discom fort which has passed. Presents for evaluation of possible stroke. Per patient: BP generaly very high,normally 170s. Often 180s-190s when he checks it at home. Last 24 hours been in the 200s persistently. Reports last night he developed R vision change, then had weakness in his arm and leg around 8pm. Very fatigued. +cold and clammy last night. No fevers. has been cold under two blankets. Went to sleep felt a little better from a headache overnight, but was still weak this AM and came to the hospital. Has had tingling in his left leg which feels like it as a burning quality and extends d own to the dorsal foot. Trace headache since being here, bad headache last night which improved overnight took tylenol last night which helped Denies chest pain, chest pressure denies cough. Denies sinus congestion. Denies nausea/vomiting/diarrhea Has not taken any aspirin or plaavix. Reports he did nto take any aspirin prehospital No fhx strokes. +hx of 'heart issues which was ablated, thinks Afib' in his mother No hx DM. Denies personal history of CKD Denies family history of strokes, DM, CKD Endorses tobacco abuse as noted below Does not see or follow-up with a PCP Initially with 2-3/5 shoulder flexion, imparied hip flexion. now miguel 5/5 but Medical History: Reviewed Medications: Reviewed Surgical History: Reviewed Family history: Reviewed Allergies: Reviewed. NKDA. Social History: Dips, 1 can per 2 days. No recreational drugs or ETOH use. 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 NAD. Cooperative. HEENT: Atraumatic, normocephalic. Endorses intact visual acuity in the eyes bilaterally. Pulm: CTAB A&P. -wheezes, -rales, -rhonchi. Symmetrical chest rise. No increased work of breathing. No respiratory distress. Cardiac: RRR, -mrg. Radial pulses intact and symmetrical. Abdominal: Nontender, nondistended, soft. BS present. CRANIAL NERVES: II: Pupils equal and reactive, no relative afferent pupillary defect, no VF cuts. III, IV, : EOM intact, no gaze preference or deviation, no nystagmus. V: normal sensation in V1, V2, and V3 segments bilaterally VII: no asymmetry, no nasolabial fold flattening VIII: normal hearing to speech IX, X: normal palatal elevation, no uvular deviation XI: 5/5 head turn and 5/5 shoulder shrug bilaterally XII: midline tongue protrusion Extremities: At time of admitting assessment slurry control tender strength, wrist flexion/extension, elbow flexion/extension,hip flexion, knee flexion/extension, ankle dorsiflexion/plantarflexion are 5/5 bilaterally although slightly qualitatively symmetrically decreased in left upper and left lower extremity, left hip flexion is with drift. Results & Data Results & Data Vital Signs (Past 12 Hours) Vital Signs Temp Pulse Pulse Resp BP BP Pulse Ox 11/03/23 14:06 61 16 216/116 H 97 11/03/23 13:33 64 207/117 H 11/03/23 13:17 80 11/03/23 13:16 36.8 C 89 14 227/133 H 98 O2 Del Method 11/03/23 14:06 Room Air 11/03/23 13:33 11/03/23 13:17 11/03/23 13:16 Room Air PG Care Time/CCT Total # of Minutes Spent Total Time Spent with Patient: Total time spent is greater than 50% in coordination of care (as documented) at patient's floor/unit and/or counseling patient: Coding Level of Care Code 39530 INT INP/OBS CARE 3/75MIN Diagnoses Ischemic cerebrovascular accident (CVA) I63.9 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
[2023-11-03] MEDS: ASPIRIN CHEW 324 MG PO STA (18:03)
[2023-11-03] MEDS: TICAGRELOR 90 MG TAB PO ONE (18:49)
[2023-11-03] MEDS: ATORVASTATIN 10 MG TAB PO ONE (18:50)
--- NOTE | 2023-11-03 18:58 | Magnetic Resonance Report ---
Brain MRI WITHOUT CONTRAST HISTORY: Acute ischemic stroke TECHNIQUE: Multiplanar multisequence MRI of the brain was performed without the use of contrast. COMPARISON STUDY: Head CT 11/03/2023. FINDINGS: There is a large area of restricted diffusion involving the posterior medial aspect of the right temporal lobe, medial aspect of the right occipital lobe, and extension into the right thalamus consistent with an acute right DOCTOR OF NAPRAPATHY territory infarct. The area of restricted diffusion measures appr oximately 9.1 x 3.0 cm. The midline structures are intact. There is no mass, midline shift, or acute hemorrhage. The major vascular flow-voids at the skull base are maintained. Mild mucosal thickening w ithin the left ethmoid air cells. The orbits are unremarkable. The mastoid air cells are clear. There is associated cytotoxic edema involving the right [employer]RAPATHY territory infarct resulting in mild mass effec t along the temporal horn of the right lateral ventricle. IMPRESSION: Acute right DO[employer] NAPRAPATHY territory infarct as described above. ACT 112: Negative or not required by law. Electronically signed by: Arnulfo Mccarthy M.D. 11/03/2023 6:56 PM
[2023-11-03 20:48] LABS: Amphetamines+Metham, Urine Neg (Neg); Barbiturates, Urine Neg (Neg); Benzodiazepine, Urine Neg (Neg); Cocaine, Urine Neg (Neg); Fentanyl, Urine Neg (Neg); MDMA (Ecstacy), Urine Neg (Neg); Marijuana, Urine Neg (Neg); Methadone, Urine Neg (Neg); Opiate, Urine Neg (Neg); Phencyclidine, Urine Neg (Neg)
[2023-11-03] MEDS ORDERED: PHARMACIST DISCHARGE MED REC CONSULT PRN (21:34)
[2023-11-03] MEDS: LABETALOL HCL IV 5 MG/ML 20ML IV PRN (23:02)
[2023-11-04] MEDS: hydrOXYzine HCl 10 MG TAB PO STA (04:38)
[2023-11-04 06:42] LABS: Basophils # (auto) 0.04 K/uL (0.00-0.20); Basophils % (auto) 0.4 %; Eosinophils # (auto) 0.17 K/uL (0.00-0.50); Eosinophils % (auto) 1.6 %; Hematocrit (blood only) 37.2 % (42.0-52.0); Hemoglobin 12.8 g/dl (14.0-18.0); Immature Granulocytes # (auto) 0.03 K/uL (0.01-0.20); Immature Granulocytes % (auto) 0.3 %; Lymphocytes # (auto) 2.17 K/uL (1.20-3.40); Lymphocytes % (auto) 20.3 %; Mean Corpuscular Hemoglobin 28.5 pg (25.0-34.0); Mean Corpuscular Hgb Conc 34.4 g/dL (32.0-36.0); Mean Corpuscular Volume 82.9 fL (80.0-100.0); Monocytes % (auto) 7.5 %; Neutrophils # (auto) 7.47 K/uL (1.40-6.50); Neutrophils % (auto) 69.9 %; Platelet Count 273 K/uL (130-400); RDW Coefficient of Variation 12.3 % (11.5-14.5); Red Blood Count 4.49 M/uL (4.70-6.10); White Blood Count 10.68 K/ul (4.8-10.8)
[2023-11-04 06:58] LABS: BUN Creatinine Ratio 12.8 (10-20); Calcium 9.2 mg/dl (8.6-10.3); Chol HDL Ratio 4.4 (0-5); Creatinine Clr Calc Pharmacy 102.6 ml/min; Est GFR (African American) 85.3 ml/min; Est GFR (Non-African American) 73.6 ml/min; Potassium 3.2 mmol/L (3.5-5.1)
[2023-11-04 07:32] LABS: Estimated Average Glucose 128 mg/dl; Hemoglobin A1C 6.1 % (4.5-5.6)
--- NOTE | 2023-11-04 09:00 | Neurology Consultation ---
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 He has some sleepiness which is a result of this somewhat large stroke but MRI yesterday did not show any significant edema. The patient has severe hypertension which is likely the etiology of this stroke. He has mild anemia, mildly elevated glucose, but no history of cigarette smoking, heart disease, or dyslipidemia. Recommendations: 1. Continue dual antiplatelet therapy with 81 mg aspirin daily and Brilinta 90 mg twice daily, for 3 to 4 weeks. Likely will switch to 1 antiplatelet medication after 3 to 4 weeks. 2. Control blood pressure trying today for a range of 180s to 90s (mean arterial pressure closer to [id number]). 3. The patient had a total cholesterol of 155 which is a "lucas zone". For this reason he is not a high-dose statin candidate (for total cholesterol greater than 170) and should remain on a regular dose of statin (atorvastatin 40 mg daily). With his very large stroke heis at higher risk for hemorrhagic transformation. 4. Physical, occupational, and speech therapy consults. 5. Increase activity as able and see if we can get him out of bed to chair. He would be a good rehabilitation hospital candidate. 6. Follow-up as an outpatient in 3 to 4 weeks with neurology PA 7. According to the chart, he does not have a PCP. This patient needs a PCP. Overall, I spent a total of 120 minutes with this case including review of records, review of CT and MRI films, direct evaluation of patient at bedside, report generation, and discussion of the case with the patient and significant other at bedside, mother via video telephone, RN at bedside, and Yudy Holder PA-C including differential diagnosis and treatment options. History of Present Illness Reason for Consultation: Patient is a 38-year-old, who I was asked to see by Dr. Adler, for neurologic consultation regarding stroke Requesting Physician: Dr. Adler Attending Physician: Iam Guzman MD History of Present Illness This patient has no obvious past medical history as he does not really see doctors and was on no medication. There is no significant surgical or medical history to this patient otherwise. History is from the patient, his significant other Alta (present at bedside), and his mother via video telephone History is that in the morning of November 01 between 0930 and 1000, he had the onset of left arm and leg numbness (not face) and weakness (arm greater than leg). He had no speech issues but he was very tired and sleepy. He acted confused at times and this sleepiness was present the entire day. The next day, November 02, he woke up around 1000 and still had these problems. He was brought to the emergency room. Patient arrived at the [facility] emergency room on November 02 at 1316, with a temperature of 36.8, pulse 89 and regular, respiratory rate 14, blood pressure 227/132, and O2 saturation 98%. On examination the patient was sleepy/tired but arousable. 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 The leg was considered unremarkable. He had decreased vision off to the left. After telestroke consultation with [facility] it was elected that he be put on a combination of 81 mg aspirin and Brilinta 90 mg twice daily. CBC showed a very mild anemia and CHEM profile showed a mildly elevated creatinine of 1.4. Glucose was 149. Chest x-ray showed mild cardiomegaly. CT scan of the head showed an obvious rather large right posterior cerebral artery territory stroke. I reviewed these films. CT angiography of the head and neck revealed severe stenosis/occlusion of the right posterior cerebral artery. Other vessels intracerebral he, the [place], and the neck including carotids and vertebrals were unremarkable with no significant stenoses. MRI of the brain showed a large essentially complete right posterior cerebral artery territory stroke. I did not see any other significant old small vessel ischemia or other abnormalities as I reviewed these films. This morning, blood pressure was 213/114, and then most recently at 0819, 204/88. Pulse has been in the 50s and 60s without other dysrhythmia. Triglycerides were 115 and total cholesterol 155. Creatinine this morning was 1.25 and glucose 104. Hemoglobin A1c was 6.1. He has mild anemia at 12.8 and 37.2. He has no complaint of pain or headache. He close he is sleepy and tired and has weakness and numbness of his left arm and leg. Allergies Allergy/AdvReac Type Severity Reaction Status Date / Time garlic Allergy Intermediate hives Verified 11/03/23 15:37 nickel Allergy Intermediate hives Verified 11/03/23 15:37 Home Medications Medication Instructions Recorded Confirmed Type No Known Home Medications 11/03/23 11/03/23 History Patient History Family History (Updated 11/04/23 @ 08:58 by Adrian Hebert MD) Father , age 62 Stroke Alcoholism Mother Hypertension Diabetes Depression Heart disease Social History (Updated 11/04/23 @ 08:59 by Adrian Hebert MD) Smoking Status: Never smoker Tobacco Type: Smokeless Tobacco (Dip or Chew) Second Hand Exposure: No; Do You Dip or Chew Tobacco: Yes; Tobacco Cessation Education Requested by Patient: No Hx Alcohol Use: No Hx Substance Use: No Preferred Language: Bulgarian Communication Ability: Effective Water Pollution Control Technician Required: No Beliefs That Will Affect Care: None Current Living Situation: Spouse current occupational status: unemployed Other Information That Helps Us Care for You: No Feels Safe at Home: Yes Safety Concerns: Feels Safe At This Time Assistive Devices: None Review of Systems Constitutional: + fatigue and + daytime sleepiness; no f ever and no weakness Eyes: no diplopia, no eye pain and no worsening vision Ear, Nose, Mouth, Throat: no ear pain, no tinnitus, no hearing loss, no dizziness, no snoring, no hoarseness and no dysphagia Respiratory: no cough and no dyspnea Cardiovascular: no chest pain, no palpitations and no lightheadedness Gastrointestinal: no abdominal pain, no nausea and no vomiting Musculoskeletal: no back pain, no neck pain, no radicular pain, no joint pain and no myalgia Integumentary: no rash and no lesions Neurologic: + localized weakness and + numbness; no gait abnormality, no generalized weakness, no tingling, no tremor(s), no abnormal movements, no headache(s), no abnormal speech, no confusion and no memory loss Psychiatric: no depression, no irritability, no anxiety, no difficulty concentrating, no confusion and no hallucinations Endocrine: no fatigue and no flushing Hematologic / Lymphatic: no easy bleeding and no easy bruising Allergy / Immunological: no urticaria and no problem reported Exam (Neuro) Physical Exam: The patient is right-handed. The patient is sleepy but easily aroused with voice. He will stay alert while being spoken to or examined but once left alone he goes back to sleep. Speech is otherwise normal without any obvious aphasia or dysarthria. Mentation and thought processes are reasonable mood and affect are normal and appropriate. Appearance and grooming are normal. Short and long-term memory are reasonable to conversation but he has to be prompted at times. Pupils are 4 mm bilaterally and reactive to light. Extraocular eye muscles are intact without nystagmus. Patient has an obvious left homonymous hemianopia There are no deficits to sensation in the face in all 3 distributions of the fifth cranial nerve bilaterally. Corneal reflexes are positive bilaterally. Facial strength and symmetry was normal bilaterally. Hearing seems intact grossly to voice and finger rub bilaterally. Palate moves well without asymmetry. There is normal sternocleidomastoid and trapezius strength bilaterally. Tongue is midline with good strength bilaterally. Neck has a full range of motion without discomfort. There are no cervical bruits bilaterally. There are no cranial or ocular bruits. Heart is without murmur. There is a regular rhythm and rate. Cervical, thoracic, and lumbar spine are nontender to palpation. Gait was not tested but stance sitting up was reasonable With outstretched arms there is drift on the left upper extremity.. There are no resting, postural, or action tremors. There is no ataxia with finger to nose testing. There is decreased facility in the left hand and left foot compared to the right which were normal. No other abnormal involuntary movements are noted. Motor strength is 5/5 diffusely in the right upper extremity including deltoids, biceps, triceps, brachioradialis, wrist flexors and extensors, rework machine operator, and intrinsic hand muscles. Left upper extremity is diffusely 4/5. Motor strength is 5/5 diffusely in the right lower extremity, including hip flexors, quadriceps, hamstrings, gastrocnemius, tibialis anterior, tibialis posterior, and Peroneii muscles. Strength is 4+/5 diffusely in the left lower extremity. The the right arm and leg have normal tone without rigidity or spasticity. There was some increased tone in the left arm and leg. Sensory examination is intact to touch and pin throughout all 4 limbs diffusely. I did not see any actual sensory deficits on examination. Reflexes are 2/4 in the biceps, triceps, brachioradialis, quadriceps, and Achilles tendons on the right. Reflexes were 1/4 in the left brachioradialis and 3/4 in the left biceps, triceps, Achilles, and quadriceps tendons. There was multiple beats of clonus in the left Achilles and quadriceps reflexes. Toes are downgoing with plantar stimulation on the right and upgoing with plantar stimulation on the left. There is no peripheral edema noted in the limbs. Results & Data Vital Signs (Past 12 Hours) Vital Signs Temp Pulse Pulse Resp BP BP Pulse Ox 11/04/23 08:19 37.1 C 62 18 204/88 H 96 11/04/23 03:50 36.9 C 54 L 213/114 H 99 11/03/23 23:17 53 L 183/89 H 11/03/23 23:17 53 L 183/89 H 11/03/23 23:02 59 L 252/127 H 11/03/23 23:01 37.3 C 59 L 252/127 H 96 11/03/23 22:08 55 L 11/03/23 21:43 36.7 C 70 18 198/92 H 95 11/03/23 21:29 64 11/03/23 21:25 O2 Del Method 11/04/23 08:19 Room Air 11/04/23 03:50 Room Air 11/03/23 23:17 11/03/23 23:17 11/03/23 23:02 11/03/23 23:01 Room Air 11/03/23 22:08 11/03/23 21:43 Room Air 11/03/23 21:29 11/03/23 21:25 Room Air PG Care Time/CCT Total # of Minutes Spent Total Time Spent with Patient: Total time spent is greater than 50% in coordination of care (as documented) at patient's floor/unit and/or counseling patient: Coding Level of Care Code 90581 INT INP/OBS CARE 3/75MIN Diagnoses Acute CVA (cerebrovascular accident) I63.9 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
[2023-11-04] MEDS: ASPIRIN 81 MG ECTAB PO SCH (09:07)
[2023-11-04] MEDS: TICAGRELOR 90 MG TAB PO SCH (09:07)
[2023-11-04] MEDS: ATORVASTATIN 40 MG TAB PO SCH (09:08)
--- NOTE | 2023-11-04 09:09 | Electrocardiogram Report ---
Test Reason : Blood Pressure : */* mmHG Vent. Rate : 68 BPM Atrial Rate : 68 BPM P-R Int : 172 ms QRS Dur : 92 ms QT Int : 382 ms P-R-T Axes : * -8 132 degrees QTcB Int : 406 ms Normal sinus rhythm Left ventricular hypertrophy with repolarization abnormality Abnormal ECG No previous ECGs available Confirmed by Rahul Kelley ([id number]) on 11/04/2023 9:08:59 AM Referred By: REFERRED SELF Confirmed By: Rahul Kelley
--- NOTE | 2023-11-04 09:46 | XCELERA ---
[id number]
[2023-11-04] MEDS ORDERED: STAT IV Infusion **Titration per Protocol STA (10:16)
[2023-11-04] MEDS: POTASSIUM CHLORIDE CRTAB 20 MEQ TABCR PO STA (10:49)
[2023-11-04] MEDS: niCARdipine 25 MG in SODIUM CHLORIDE 0.9% 240 ML IV SCH (11:31)
--- NOTE | 2023-11-04 11:32 | Critical Care Consultation ---
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 conversion Try to keep systolic blood pressure less than 180 with a MAP in the 110's -- Acute stroke Continue with aspiration precautions Continue with dual antiplatelet therapy Neurology on board -- CKD Continue to monitor BUNs/creatinine --Stenosis of the right posterior cerebral artery --Prophylaxis VTE: IPC GI: None Lines: Peripheral Diet: Cardiac Plan: Strict ins and outs Continue with nicardipine drip to goal of SBP less than 180 and diastolic less than 90 I will start the patient on lisinopril 10 mg and titrate it up to 40 mg if need be I have personally spent 46 minutes of critical care time in the direct management of this patient. This is a life/limb threatening event. This includes time spent evaluating patient, direct bedside care, chart review, placing orders, interpretation of diagnostic studies, discussion with consultants, patient, and family members, as well as other required patient management activities. This time is exclusive of all separately billable procedures, and teaching time and separate from and in addition to any other critical care service time. Please note the above document was generated using voice recognition software. It may contain grammatical, syntax or spelling errors. History of Present Illness Attending Physician: Iam Guzman MD History of Present Illness 38-year-old male was admitted to the hospital because of left arm weakness and numbness on 11/02/2023 Past medical history: Hypertension, not on any medication Patient was admitted on the floor for acute right-sided stroke, no tPA was given On the floor today patient was found to be hypertensive with systolic blood pressure in the 220s and diastolic in the 120s He has not been getting any blood pressure medications while being in the hospital as initial plan was to continue with permissive hypertension. He was started on nicardipine drip and sent to the ICU At the time of examination patient systolic blood pressure was 220 and diastolic in the 130. Heart rate was in the mid 60s. He was not in any respiratory distress He was awake alert oriented, answering to the questions appropriately. Denied any chest pain, no abdominal pain, he has blurry vision since he came to the hospital. It has not worsened. Denied any headache. No shortness of breath Social history: Remote smoker in the past Strong family history of cardiovascular disease as well as stroke Allergies Allergy/AdvReac Type Severity Reaction Status Date / Time garlic Allergy Intermediate hives Verified 11/03/23 15:37 nickel Allergy Intermediate hives Verified 11/03/23 15:37 Home Medications Medication Instructions Recorded Confirmed Type No Known Home Medications 11/03/23 11/03/23 History Patient History Family History (Updated 11/04/23 @ 08:58 by Adrian Hebert MD) Father , age 62 Stroke Alcoholism Mother Hypertension Diabetes Depression Heart disease Social History (Updated 11/04/23 @ 08:59 by Adrian Hebert MD) Smoking Status: Never smoker Tobacco Type: Smokeless Tobacco (Dip or Chew) Second Hand Exposure: No; Do You Dip or Chew Tobacco: Yes; Hx Alcohol Use: No Hx Substance Use: No Preferred Language: Georgian Communication Ability: Effective Hand Coke Drawer Required: No Beliefs That Will Affect Care: None Current Living Situation: Spouse current occupational status: unemployed Feels Safe at Home: Yes Assistive Devices: None Review of Systems 2 Review of Systems: All systems reviewed & are unremarkable except as noted in HPI & below Physical Exam 2 Physical Exam: Constitutional: No acute distress HEENT: PERRLA, does have visual field deficit, was not able to follow the finger to the left/left homonymous hemianopia Respiratory system: Good air entry bilaterally, no wheeze, no rhonchi, no crackles CVS: S1-S2 positive, no murmurs or gallops Abdomen: Soft, nontender, nondistended, positive bowel sounds x4 Extremities: +2 pulses bilaterally radialis/ dorsalis pedis, no cyanosis, no edema Neuro: Awake alert oriented x3, strength right upper and right lower extremity 5/5, strength left upper extremity 4/5, left lower extremity 5/5 Psych: Normal mood and affect G/U: No Oneal Skin: no rashes, warm and dry Lymphatic: no cervical or axillary lymphadenopathy Results & Data Results & Data Vital Signs (Past 12 Hours) Vital Signs Temp Pulse Pulse Resp BP BP Pulse Ox 11/04/23 09:52 228/97 H 11/04/23 09:45 76 228/97 H 11/04/23 09:15 92 H 238/89 H 11/04/23 09:13 238/89 H 11/04/23 08:19 37.1 C 62 18 204/88 H 96 11/04/23 08:00 11/04/23 07:00 63 11/04/23 03:50 36.9 C 54 L 213/114 H 99 O2 Del Method 11/04/23 09:52 11/04/23 09:45 11/04/23 09:15 11/04/23 09:13 11/04/23 08:19 Room Air 11/04/23 08:00 Room Air 11/04/23 07:00 11/04/23 03:50 Room Air Laboratory Results 11/04/23 05:26 11/04/23 05:26 Coding Level of Care Code 36994 CRITICAL CARE 1ST 30-74M Diagnoses Hypertensive urgency I16.0 Hypertension I10 Acute left-sided weakness R53.1 Hemianopia, homonymous, left H53.462 Acute CVA (cerebrovascular accident) I63.9 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
[2023-11-04] MEDS: FAMOTIDINE 20MG IV PUSH 20 MG/5 ML SYR IV STA (11:34)
[2023-11-04 11:35] LABS: HCO3 VBG 26 mmol/L; Oxygen Saturation VBG 94.7 %; PCO2 VBG 32 mmHg (38-50); PO2 VBG 64 mmHg; pH VBG 7.51 (7.36-7.41)
[2023-11-04] MEDS: lisinopril 10 MG TAB PO SCH ×2 (11:53→17:18)
--- NOTE | 2023-11-04 13:42 | Hospitalist Progress Note ---
Date of Service November 04, 2023 Assessment & Plan (1) Ischemic cerebrovascular accident (CVA): Plan: Acute large territory R PLATE COLORER CVA - Patient presented with 1 day of left arm weakness and left-sided numbness which began at 10 AM 11/02/2023, over 24 hours prior to admission. - Case was reviewed by [facility] neurosurgery. Recommended aspirin and Brilinta and DAPT load, and atorvastatin. - CTAhead and neck: Moderate to severe narrowing within the proximal right PLATE COLORER with focal area of occlusion, diminished perfusion within mid to distal right PLATE COLORER corresponds to acute right PLATE COLORER infarct. - CThead: Acute right PLATE COLORER infarct - Chest x-ray: No acute findings - MRI stat obtained. Large acute R PLATE COLORER territory involved. Recommended to have repeat CT in 24 hours from aspirin/Brilinta load to reevaluate for any hemorrhagic transformation. Also recommended hypercoagulable panel including homocystine. - Echo revealed no intra-arterial shunt, left ventricular systolic function low normal, EF= 5055%. - Lipid panel WNL. Hgb A1c 6.1%. Toxicology screen negative. - Hypercoag panel ordered, pending. - Speech consulted - patient passed dysphagia screen. - Neurology consulted, appreciate recommendations. - Patient was transferred to the ICU 11/03 due to hypertensive urgency requiring nicardipine drip. > BP goal for 11/03 is SBP 180 with MAP in 110s. - VBG revealed respiratory alkalosis. - Repeat CThead 11/03 at 1800 revealed large subacute right PLATE COLORER infarct, no hemorrhage, no midline shift. - Continue aspirin 81 mg daily, ticagrelor 90 mg twice daily - Atorvastatin dose reduced from 80 mg to 40 mg daily per neurology's recommendations given his total cholesterol of 155 - Lisinopril 20 mg p.o. 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 I agree w/ the block components of her documentation. Patient with ongoing severely elevated blood pressure despite multiple prn meds for such. Systolics still >200. He has been restless, anxious. He had heartburn this am. No chest pain. No dyspnea. Exam - gen - obese, restless, sleepy eyes - PERRL; left homonymous hemianopsia heart - RRR, s1 s2, no murmur lungs - CTA b/l abd - soft NT ND BS+ ext - no edema, pulses 2+ b/l A/P: 1. right PLATE COLORER territory stroke 2. left homonymous hemianopsia 3. HTN emergency 4. obesity BMI 36 Tx to ICU to initiate anti-hypertensive drip. Will utilize nicardipine drip for such. Ms Holder discussed Mr Segura's care with Dr Alves from the ICU team. Appreciate neuro consultation. Etiology of stroke - thrombotic? Embolic? Cont tele. Cont asa/Brilinta. Cont high-intensity statin. Consider 30-day monitor or loop recorder to r/o a.fib/flutter as cause of stroke. Appreciate Dr Alves taking Mr Segura in transfer to BP control. Iam Guzman MD Subjective Patient seen and evaluated at bedside with significant other this morning. Patient with hypertensive urgency, with SBP in 220s and DBP in 120s. Patient was transferred to ICU to start nicardipine drip. Patient is sleepy, but easily wakes to conversation. He denies headache, chest pain, difficulty breathing, shortness of breath. He endorses weakness and numbness in his left arm and left leg, though there was no objective left-sided weakness or sensory loss on physical exam. Patient does have significant left homonymous hemianopia, but reports clear vision. He complained of heartburn, relieved after Pepcid. 12- lead ECG obtained to rule out cardiac cause, revealed NSR and LVH, no ST elevations. Reevaluated the patient in the ICU in the afternoon. Blood pressures have stabilized. He denies any complaints. Physical Exam Physical Exam: General: No acute distress, nondiaphoretic, well-developed, well-nourished. HEENT: PERRLA. Significant left homonymous hemianopia. Cardiac: Regular rate and rhythm without murmurs gallops or rubs. Pulm: Clear to auscultation bilaterally without wheezes, rales or rhonchi. No respiratory distress. 97% on room air. Abdominal: Soft, nontender, nondistended. Bowel sounds present. Neuro: A&O x3. Strength right upper and right lower extremity 5/5, strength left upper extremity 4/5, left lower extremity 5/5. No objective sensory loss. Results & Data Results & Data Vital Signs (Past 12 Hours) Vital Signs Temp Pulse Pulse Resp BP BP Pulse Ox 11/04/23 12:45 103 H 16 170/109 H 92 11/04/23 12:42 103 H 18 178/99 H 96 11/04/23 12:27 102 H 25 H 145/88 H 93 11/04/23 12:15 86 19 158/88 H 93 11/04/23 12:00 91 H 13 199/94 H 94 11/04/23 11:40 64 12 178/89 H 94 11/04/23 11:30 67 9 L 178/89 H 96 11/04/23 11:00 82 12 213/192 H 97 11/04/23 09:52 228/97 H 11/04/23 09:45 76 228/97 H 11/04/23 09:15 92 H 238/89 H 11/04/23 09:13 238/89 H 11/04/23 08:19 37.1 C 62 18 204/88 H 96 11/04/23 08:00 11/04/23 07:00 63 11/04/23 03:50 36.9 C 54 L 213/114 H 99 O2 Del Method 11/04/23 12:45 11/04/23 12:42 11/04/23 12:27 11/04/23 12:15 11/04/23 12:00 11/04/23 11:40 Room Air 11/04/23 11:30 11/04/23 11:00 11/04/23 09:52 11/04/23 09:45 11/04/23 09:15 11/04/23 09:13 11/04/23 08:19 Room Air 11/04/23 08:00 Room Air 11/04/23 07:00 11/04/23 03:50 Room Air Laboratory Results Reviewed CBC Reviewed VBG Reviewed BMP Reviewed lipid panel PG Care Time/CCT Total # of Minutes Spent Total Time Spent with Patient: Total time spent is greater than 50% in coordination of care (as documented) at patient's floor/unit and/or counseling patient: Coding Level of Care Code 41034 SUB INP/OBS CARE 350MIN Diagnoses Ischemic cerebrovascular accident (CVA) I63.9 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
--- NOTE | 2023-11-04 14:01 | Pharmacy Report ---
- Date of Service November 04, 2023 - Pharmacy CVA/TIA Medication Review Medications to Prevent Stroke handout has been added to the patients discharge packet. Antiplatelet(s) * aspirin 81 mg PO daily + ticagrelor 90 mg PO BID x 3-4 weeks, then monotherapy Cholesterol * High intensity statin atorvastatin 80 mg daily DVT Prophylaxis * SCD knee Therapeutic Anticoagulation * No history of Afib/Aflutter noted Type 2 Diabetes * Patient does not have T2DM
--- NOTE | 2023-11-04 18:16 | CT Scan Report ---
CT SCAN OF THE BRAIN WITHOUT IV CONTRAST CLINICAL HISTORY: Follow-up stroke COMPARISON STUDY: CT and MRI of the brain dated 11/03/2023 TECHNIQUE: Unenhanced axial CT scan of the brain is performed from the vertex to the skull base. A d ose lowering technique was utilized adhering to the principles of ALARA. CT DOSE: 625.8 mGy.cm FINDINGS: Brain parenchyma: Again seen is loss of lucas-white matter differentiation throughout the right OCCUPATIONAL THERAPY ASSIST te rritory consistent with a subacute/evolving infarct. No hemorrhage is identified. There is mild local ized mass effect/edema. There is no midline shift. A subacute lacunar infarct is noted in the right t halamus. No new foci of ischemia are suggested by CT criteria. No extra-axial fluid collection is see n. Ventricles, sulci, cisterns: Normal in configuration. Intracranial vasculature: The visualized intracranial vasculature at the skull base is normal in appe arance. Calvarium: Unremarkable. Sinuses and mastoids: The visualized paranasal sinuses are clear. The mastoid air cells are well pneu matized. Orbits: The bony orbits are grossly intact. IMPRESSION: 1. Again seen is a large subacute/evolving right OCCUPATIONAL THERAPY ASSIST territory infarct. 2. No hemorrhage is identified and there is no midline shift. ACT 112: Negative or not required by law. Electronically signed by: Tolu Gamboa M.D. 11/04/2023 6:13 PM
[2023-11-04] MEDS ORDERED: lisinopril 10 MG TAB PO SCH (19:00)
[2023-11-04] MEDS: hydrALAZINE HCL 20 MG/ML VIAL IV PRN (19:43)
[2023-11-04] MEDS: lisinopril 10 MG TAB PO ONE (19:43)
[2023-11-04] MEDS: MAGNESIUM SULFATE / D5W 1 GM/100 ML BAG IV SCH (22:31)
[2023-11-05 04:59] LABS: Basophils # (auto) 0.06 K/uL (0.00-0.20); Basophils % (auto) 0.5 %; Eosinophils # (auto) 0.17 K/uL (0.00-0.50); Eosinophils % (auto) 1.4 %; Hematocrit (blood only) 41.2 % (42.0-52.0); Hemoglobin 14.2 g/dl (14.0-18.0); Immature Granulocytes # (auto) 0.03 K/uL (0.01-0.20); Immature Granulocytes % (auto) 0.2 %; Lymphocytes # (auto) 1.99 K/uL (1.20-3.40); Lymphocytes % (auto) 15.8 %; Mean Corpuscular Hemoglobin 28.9 pg (25.0-34.0); Mean Corpuscular Hgb Conc 34.5 g/dL (32.0-36.0); Mean Corpuscular Volume 83.7 fL (80.0-100.0); Mean Platelet Volume 10.2 fL (9.4-12.4); Monocytes # (auto) 1.23 K/uL (0.11-0.59); Monocytes % (auto) 9.8 %; Neutrophils # (auto) 9.09 K/uL (1.40-6.50); Neutrophils % (auto) 72.3 %; Platelet Count 304 K/uL (130-400); RDW Coefficient of Variation 12.6 % (11.5-14.5); RDW Standard Deviation 38.4 fL (36.4-46.3); Red Blood Count 4.92 M/uL (4.70-6.10); White Blood Count 12.57 K/ul (4.8-10.8)
[2023-11-05 05:14] LABS: BUN Creatinine Ratio 11.6 (10-20); Calcium 9.2 mg/dl (8.6-10.3); Creatinine Clr Calc Pharmacy 99.4 ml/min; Est GFR (African American) 82.1 ml/min; Est GFR (Non-African American) 70.9 ml/min; Potassium 3.8 mmol/L (3.5-5.1)
--- NOTE | 2023-11-05 07:30 | Critical Care Progress Note ---
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 -- Acute stroke Continue with aspiration precautions Continue with dual antiplatelet therapy Neurology on board -- CKD Continue to monitor BUNs/creatinine --Stenosis of the right posterior cerebral artery --Prophylaxis VTE: IPC GI: None Lines: Peripheral Diet: Cardiac Plan: In/out: -1 L, urine output 1600 Patient has been off nifedipine drip since at least 10 PM yesterday His blood pressure systolic was 178 with heart rate in 107 at the time of examination. I am going to add Coreg 3.125 p.o. twice daily on top of lisinopril. I think it is reasonable to maintain SBP around 150-[address] head evening of 11/04/2023 did not show any significant change in the stroke and no hemorrhagic conversion. Hemodynamically stable to be downgraded to medical floor Please note the above document was generated using voice recognition software. It may contain grammatical, syntax or spelling errors.Any formal questions or concerns about the content, text or information contained within the body of this dictation should be directly addressed to the provider for clarification. Admission and Anticipated Discharge Date Admission Date: November 03, 2023 Subjective Patient seen and examined at bedside. No acute distress, no adverse events overnight. He was complaining of headache. Denied any significant change in it comes to his vision. It is still blurry. His systolic blood pressure was in the 170s with MAP in the 100s. Denied any nausea or vomiting He was having bouts of restlessness on and off. He is able to tolerate diet Review of Systems 2 Review of Systems: All systems reviewed & are unremarkable except as noted in Subjective Physical Exam 2 Physical Exam: Constitutional: No acute distress HEENT: PERRLA, does have visual field deficit, was not able to follow the finger to the left/left homonymous hemianopia Respiratory system: Good air entry bilaterally, no wheeze, no rhonchi, no crackles CVS: S1-S2 positive, no murmurs or gallops Abdomen: Soft, nontender, nondistended, positive bowel sounds x4 Extremities: +2 pulses bilaterally radialis/ dorsalis pedis, no cyanosis, no edema Neuro: Awake alert oriented x3, strength right upper and right lower extremity 5/5, strength left upper extremity 4/5, left lower extremity 5/5 Psych: Normal mood and affect G/U: No Oneal Skin: no rashes, warm and dry Lymphatic: no cervical or axillary lymphadenopathy Results & Data Results & Data Vital Signs (Past 12 Hours) Vital Signs Pulse Resp BP Pulse Ox O2 Del Method 11/05/23 01:30 56 L 19 98 11/05/23 01:15 147/72 H 11/05/23 01:03 64 23 99 11/05/23 01:00 172/79 H 11/05/23 01:00 172/79 H 11/05/23 01:00 172/79 H 11/05/23 00:45 181/116 H 11/05/23 00:45 181/116 H 11/05/23 00:45 181/116 H 11/05/23 00:45 181/116 H 11/05/23 00:39 67 6 L 100 11/05/23 00:30 166/114 H 11/05/23 00:30 166/114 H 11/05/23 00:30 53 L 16 100 11/05/23 00:21 58 L 11 L 100 11/05/23 00:15 184/92 H 11/05/23 00:00 184/102 H 11/04/23 23:57 56 L 9 L 100 11/04/23 23:45 173/103 H 11/04/23 23:45 82 10 L 100 11/04/23 23:36 64 13 100 11/04/23 23:31 195/98 H 11/04/23 23:31 195/98 H 11/04/23 23:31 195/98 H 11/04/23 23:21 93 H 12 97 11/04/23 23:17 192/81 H 11/04/23 23:17 192/81 H 11/04/23 23:15 182/82 H 11/04/23 23:03 75 12 97 11/04/23 23:00 167/74 H 11/04/23 23:00 167/74 H 11/04/23 23:00 167/74 H 11/04/23 23:00 85 21 97 11/04/23 22:45 166/111 H 11/04/23 22:45 166/111 H 11/04/23 22:39 91 H 27 H 99 11/04/23 22:33 109 H 21 100 11/04/23 22:30 140/64 11/04/23 22:30 140/64 11/04/23 22:30 140/64 11/04/23 22:30 140/64 11/04/23 22:15 155/81 H 11/04/23 22:00 148/79 H 11/04/23 22:00 148/79 H 11/04/23 21:54 63 18 100 11/04/23 21:49 150/74 H 11/04/23 21:49 150/74 H 11/04/23 21:49 150/74 H 11/04/23 21:48 107 H 25 H 98 11/04/23 21:42 110 H 22 98 11/04/23 21:30 152/90 H 11/04/23 21:15 177/105 H 11/04/23 21:15 177/105 H 11/04/23 21:15 100 H 20 100 11/04/23 21:00 127 H 17 99 11/04/23 21:00 166/102 H 11/04/23 21:00 166/102 H 11/04/23 20:52 164/96 H 11/04/23 20:52 164/96 H 11/04/23 20:52 164/96 H 11/04/23 20:51 120 H 17 98 11/04/23 20:45 188/110 H 11/04/23 20:45 188/110 H 11/04/23 20:45 188/110 H 11/04/23 20:45 188/110 H 11/04/23 20:39 117 H 16 99 11/04/23 20:30 66 19 100 11/04/23 20:30 182/108 H 11/04/23 20:30 182/108 H 11/04/23 20:30 182/108 H 11/04/23 20:30 182/108 H 11/04/23 20:16 184/103 H 11/04/23 20:16 184/103 H 11/04/23 20:12 57 L 8 L 99 11/04/23 20:00 176/102 H 11/04/23 20:00 84 17 98 11/04/23 20:00 Room Air 11/04/23 19:46 193/124 H 11/04/23 19:46 193/124 H 11/04/23 19:45 89 15 98 Laboratory Results 11/05/23 04:41 11/05/23 04:41 Coding Level of Care Code 91217 SUB INP/OBS CARE 3/50MIN Diagnoses Hypertensive urgency I16.0 Hypertension I10 Acute left-sided weakness R53.1 Hemianopia, homonymous, left H53.462 Acute CVA (cerebrovascular accident) I63.9 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
[2023-11-05] MEDS: ACETAMINOPHEN 325 MG TAB PO PRN (08:06)
[2023-11-05] MEDS: lisinopril 10 MG TAB PO SCH ×2 (08:06→21:13)
[2023-11-05] MEDS: ONDANSETRON INJ 2 MG/ML 2 ML VIAL IV PRN (08:09)
[2023-11-05] MEDS: ATORVASTATIN 40 MG TAB PO SCH (08:11)
[2023-11-05] MEDS ORDERED: lisinopril 20 MG TAB PO SCH (09:00)
[2023-11-05] MEDS ORDERED: KETOROLAC TROMETHAMINE 15 MG/ML VIAL IV PRN (09:52)
--- NOTE | 2023-11-05 10:08 | CT Scan Report ---
CT SCAN OF THE BRAIN WITHOUT IV CONTRAST CLINICAL HISTORY: Follow-up stroke COMPARISON STUDY: CT and MRI of the brain dated 11/03/2023. CT of the brain dated 11/04/2023. TECHNIQUE: Unenhanced axial CT scan of the brain is performed from the vertex to the skull base. A d ose lowering technique was utilized adhering to the principles of ALA. The patient was scanned twic e due to significant motion artifact. CT DOSE: 938. mGy.cm FINDINGS: Brain parenchyma: Again seen is loss of lucas-white matter differentiation throughout the right POWER DISTRIBUTION ENGINEER te rritory consistent with a subacute/evolving infarct. No hemorrhage is identified. There is mild local ized mass effect/edema. There is no midline shift. A subacute lacunar infarct is noted in the right t halamus. No new foci of ischemia are suggested by CT criteria. No extra-axial fluid collection is see n. Ventricles, sulci, cisterns: Normal in configuration. Intracranial vasculature: The visualized intracranial vasculature at the skull base is normal in appe arance. Calvarium: Unremarkable. Sinuses and mastoids: The paranasal sinuses are clear. The mastoid air cells are well pneumatized. Orbits: The bony orbits are grossly intact. IMPRESSION: 1. Again seen is a large subacute/evolving right POWER DISTRIBUTION ENGINEER territory infarct. 2. No hemorrhage is identified and there is no midline shift. ACT 112: Negative or not required by law. Electronically signed by: Tolu Gamboa M.D. 11/05/2023 10:06 AM
--- NOTE | 2023-11-05 10:48 | Communication Note ---
Date of Service: November 05, 2023 Critical care addendum: Was called to evaluate the patient that was noticeable seizure-like activity. When I came to the room patient was likely postictal. No seizure-like activity appreciated during my examination. On physical exam pupils were round equal and reactive to light bilaterally. Patient was still moving bilateral extremities. He had just returned from CT of the head which did not show any signs of hemorrhage. Patient systolic blood pressure was in the 140s with MAP in the high 90s to low 100s. Heart rate in the 80s Patient was 98% on room air. Etiology for seizure is likely from the evolving large right RECOVERY ENGINEER stroke. Patient's blood pressure has been gradually going down within normal range. MAP is still in the 90s. I doubt blood pressure being one of the reason for the seizure. Patient was given 2 mg of midazolam, loaded with 1500 mg of Keppra and started on 750 mg Keppra twice daily Patient seems to have some apneic episodes while sleeping with desaturation. Could have sleep apnea which could be obstructive as well as central given the stroke. With start the patient on CPAP especially given that he is able to move both of his hand and can remove the CPAP by himself if need be. Case was discussed with neurology Continue with seizure precautions I have personally spent 36 minutes of critical care time in the direct management of this patient. This is a life/limb threatening event. This includes time spent evaluating patient, direct bedside care, chart review, placing orders, interpretation of diagnostic studies, discussion with consultants, patient, and family members, as well as other required patient management activities. This time is exclusive of all separately billable procedures, and teaching time and separate from and in addition to any other critical care service time. Please note the above document was generated using voice recognition software. It may contain grammatical, syntax or spelling errors. Coding Level of Care Code 53137 CRITICAL CARE 1ST 30-74M
[2023-11-05] MEDS ORDERED: LORazepam 2 MG/1 ML VIAL IV PRN (10:53)
[2023-11-05] MEDS ORDERED: LORazepam 2 MG in SYRINGE 1 ML IV PRN (11:00)
[2023-11-05] MEDS: MIDAZOLAM HCL 1 MG/ML 2ML VIAL ONE (11:08)
[2023-11-05] MEDS: levETIRAcetam 500 MG/5 ML VIAL IV STA (11:37)
--- NOTE | 2023-11-05 11:50 | Neurology Progress Note ---
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 He has some sleepiness which is a result of this somewhat large stroke but MRI November 02, did not show any significant edema. Patient has had some CT scans of the head including 1 this morning showing no increased stroke, hemorrhage, or obvious edema. The patient had severe hypertension which is likely the etiology of this stroke. He has mild anemia, mildly elevated glucose, but no history of cigarette smoking, heart disease, or dyslipidemia. Since admission his blood pressure has been treated and dropped to a low of 122/70. At this time is when he began becoming symptomatic and had the seizures. The generalized nature of the seizures may mean their origin with the hypotension as opposed to the stroke itself. Recommendations: 1. Continue dual antiplatelet therapy with 81 mg aspirin daily and Brilinta 90 mg twice daily, for 3 to 4 weeks. Likely will switch to 1 antiplatelet medication after 3 to 4 weeks. 2. Control blood pressure as you are doing, aiming for a mean arterial pressure of 105-110. 3. The patient had a total cholesterol of 155 which is a "lucas zone". For this reason he is not a high-dose statin candidate (for total cholesterol greater than 170) and should remain on a regular dose of statin (atorvastatin 40 mg daily). With his very large stroke heis at higher risk for hemorrhagic transformation. 4. Patient is getting a 1500 mg IV levetiracetam load followed by 70 mg twice daily. If this does not prevent seizures, I may use valproic acid IV. 5. Continue CPAP on the direction of the ICU physician 6. Physical, occupational, and speech therapy consults. 7. Increase activity as able and see if we can get him out of bed to chair. . 8. Follow-up as an outpatient in 3 to 4 weeks with neurology PA 9. According to the chart, he does not have a PCP. This patient needs a PCP. Overall, I spent a total of 50 minutes with this case including review of records, review of CT films, direct evaluation of patient at bedside, report generation, and discussion of the case with the patient, mother, and significant other at bedside, RN at bedside, , and Yudy Ortiz, including differential diagnosis and treatment options. Admission and Anticipated Discharge Date Admission Date: November 03, 2023 Subjective Patient was transferred to the ICU yesterday because of fluctuating blood p ressure issues. This morning he went down to CT scan and this showed no change from the previous study. There was no new swelling and no hemorrhage. Shortly after this he had a generalized seizure lasting for seconds. Nursing witnessed 1 of these 10-second generalized shaking events. Around this time he was noted to have periods of central apnea and now is on CPAP. Patient had been very awake and alert earlier in the morning. The patient was ordered 1500 mg IV levetiracetam and then will be on 7 or 50 mg twice daily. Currently blood pressure is 140s over 80s with a MAP over 105. He is not in any pain. Results & Data Vital Signs (Past 12 Hours) Vital Signs Pulse Resp BP Pulse Ox 11/05/23 01:30 56 L 19 98 11/05/23 01:15 147/72 H 11/05/23 01:03 64 23 99 11/05/23 01:00 172/79 H 11/05/23 01:00 172/79 H 11/05/23 01:00 172/79 H 11/05/23 00:45 181/116 H 11/05/23 00:45 181/116 H 11/05/23 00:45 181/116 H 11/05/23 00:45 181/116 H 11/05/23 00:39 67 6 L 100 11/05/23 00:30 166/114 H 11/05/23 00:30 166/114 H 11/05/23 00:30 53 L 16 100 11/05/23 00:21 58 L 11 L 100 11/05/23 00:15 184/92 H 11/05/23 00:00 184/102 H 11/04/23 23:57 56 L 9 L 100 Exam (Neuro) Physical Exam: Patient is somewhat sleepy from Versed given to him for the seizure and wearing a CPAP mask however he will open his eyes turn his head and follow some one-step commands. He has good strength in the arms and legs bilaterally and tends to move the right arm and leg a little more voluntarily than the left arm and leg (although strength is equal). He had no abnormal involuntary movements and there is no facial droop. 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
[2023-11-05] MEDS: POTASSIUM CHLORIDE / WTR 10 MEQ/100 ML PLCT IV ONE (13:13)
[2023-11-05] MEDS: PANTOprazole 40 MG in SYRINGE 0 ML IV SCH (13:16)
--- NOTE | 2023-11-05 14:34 | Electrocardiogram Report ---
Test Reason : Blood Pressure : */* mmHG Vent. Rate : 74 BPM Atrial Rate : 74 BPM P-R Int : 148 ms QRS Dur : 94 ms QT Int : 394 ms P-R-T Axes : 63 20 133 degrees QTcB Int : 437 ms Normal sinus rhythm with sinus arrhythmia T-wave inversion in Anterolateral leads , consider ischemia Abnormal ECG When compared with ECG of 03-Nov-2023 13:32, T-wave inversion in Anterolateral leads more pronounced Voltage criteria for left ventricular hypertrophy no longer present Confirmed by Rahul Kelley ([id number]) on 11/05/2023 2:33:57 PM Referred By: REFERRED SELF Confirmed By: Rahul Kelley
--- NOTE | 2023-11-05 14:44 | Hospitalist Progress Note ---
Date of Service November 05, 2023 Assessment & Plan (1) Ischemic cerebrovascular accident (CVA): Plan: Acute large territory R LIGHTING DESIGNER CVA - Patient presented with 1 day of left arm weakness and left-sided numbness which began at 10 AM 11/02/2023, over 24 hours prior to admission. - Case was [place] [facility] [place]. Recommended aspirin and Brilinta and DAPT load, and atorvastatin. - CTAhead and neck: Moderate to severe narrowing within the proximal right LIGHTING DESIGNER with focal area of occlusion, diminished perfusion within mid to distal right LIGHTING DESIGNER corresponds to acute right LIGHTING DESIGNER infarct. - CThead: Acute right LIGHTING DESIGNER infarct - Chest x-ray: No acute findings - MRI stat obtained. Large acute R LIGHTING DESIGNER territory involved. Recommended to have repeat CT in 24 hours from aspirin/Brilinta load to reevaluate for any hemorrhagic transformation. Also recommended hypercoagulable panel including homocystine. - Echo revealed no intra-arterial shunt, left ventricular systolic function low normal, EF= 5055%. - Lipid panel WNL. Hgb A1c 6.1%. Toxicology screen negative. - Hypercoag panel ordered, pending. - Speech consulted - patient passed dysphagia screen. - Neurology consulted, appreciate recommendations. - Patient was transferred to the ICU 11/03 due to hypertensive urgency requiring nicardipine drip - BP as low as 120 this morning with subsequent seizure - Repeat CThead 11/03 & 11/04 stable without hemorrhagic transformation - Continue aspirin 81 mg daily, ticagrelor 90 mg twice daily - Atorvastatin dose reduced from 80 mg to 40 mg daily per neurology's recommendations given his total cholesterol of 155 - Patient will need to establish care with a PCP 11/04 AM was somnolent with headache so I ordered repeat head CT which was unchanged with no hemorrhage Following that had generalized seizure -reviewed recs in neuro note, plan to continue po keppra -MAP goal 105-110. 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 still lethargic but opened eyes for brief conversation c/o severe headache LUE LLE weakness, L sided vision loss Physical Exam 2 Physical Exam: PHYSICAL EXAMINATION Last 24h vital signs reviewed, see documentation in flowsheet General: lethargic, aroused to voice and gentle tactile stimulation HEENT: Normocephalic, atraumatic, pupils round and equal moist mucus membranes Lungs: Normal respiratory effort. Clear to auscultation bilaterally. No RRW Heart: Regular rate and rhythm, no murmurs. No JVD Abdomen: Soft, nontender, nondistended. Bowel sounds present. Extremities: Warm, dry, well-perfused. No extremity edema. Neuro: lethargic, gives short verbal replies, open eyes, PERRL, EOMI, left- sided visual field deficit by confrontation, left upper extremity and left lower extremity pronator drift Psych: Sleepy Results & Data Results & Data Vital Signs (Past 12 Hours) Vital Signs Temp Pulse Pulse Resp BP BP Pulse Ox 11/05/23 12:46 81 15 175/82 H 100 11/05/23 12:15 127/66 11/05/23 12:06 108 H 18 100 11/05/23 12:00 36.8 C 11/05/23 11:06 82 8 L 94 11/05/23 11:00 142/75 H 11/05/23 10:18 64 14 97 11/05/23 10:15 139/98 11/05/23 09:00 93 H 18 95 11/05/23 09:00 124/89 11/05/23 08:00 140 H 17 168/95 H 11/05/23 08:00 36.8 C 11/05/23 07:00 104 H 16 159/87 H 98 O2 Del Method FiO2 11/05/23 12:46 11/05/23 12:15 11/05/23 12:06 CPAP 30 11/05/23 12:00 11/05/23 11:06 11/05/23 11:00 11/05/23 10:18 Room Air 11/05/23 10:15 11/05/23 09:00 Room Air 11/05/23 09:00 11/05/23 08:00 11/05/23 08:00 11/05/23 07:00 Room Air Laboratory Results 11/05/23 04:41 11/05/23 04:41 PG Care Time/CCT Total # of Minutes Spent Total Time Spent with Patient: Total time spent is greater than 50% in coordination of care (as documented) at patient's floor/unit and/or counseling patient: Coding Level of Care Code 01063 SUB INP/OBS CARE MIN Diagnoses Ischemic cerebrovascular accident (CVA) I63.9 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
[2023-11-05] MEDS ORDERED: hydrALAZINE HCL 20 MG/ML VIAL IV PRN (15:16)
[2023-11-05] MEDS: PANTOprazole 40 MG TAB PO SCH (15:37)
[2023-11-05] MEDS: POTASSIUM CHLORIDE CRTAB 20 MEQ TABCR PO STA (15:37)
[2023-11-05] MEDS: carvediloL 6.25 MG TAB PO SCH (15:37)
[2023-11-05] MEDS: carvediloL 3.125 MG TAB PO SCH (16:50)
[2023-11-05] MEDS: levETIRAcetam IV 750 MG in 0.9 % SODIUM CHLORIDE 100 ML IV SCH (21:13)
[2023-11-06 05:05] LABS: Basophils # (auto) 0.05 K/uL (0.00-0.20); Basophils % (auto) 0.4 %; Eosinophils # (auto) 0.19 K/uL (0.00-0.50); Eosinophils % (auto) 1.6 %; Hematocrit (blood only) 41.2 % (42.0-52.0); Hemoglobin 13.7 g/dl (14.0-18.0); Immature Granulocytes # (auto) 0.04 K/uL (0.01-0.20); Immature Granulocytes % (auto) 0.3 %; Lymphocytes # (auto) 1.57 K/uL (1.20-3.40); Lymphocytes % (auto) 13.2 %; Mean Corpuscular Hemoglobin 28.3 pg (25.0-34.0); Mean Corpuscular Hgb Conc 33.3 g/dL (32.0-36.0); Mean Corpuscular Volume 85.1 fL (80.0-100.0); Mean Platelet Volume 10.3 fL (9.4-12.4); Monocytes # (auto) 1.03 K/uL (0.11-0.59); Monocytes % (auto) 8.6 %; Neutrophils # (auto) 9.05 K/uL (1.40-6.50); Neutrophils % (auto) 75.9 %; Platelet Count 271 K/uL (130-400); RDW Coefficient of Variation 12.6 % (11.5-14.5); RDW Standard Deviation 38.6 fL (36.4-46.3); Red Blood Count 4.84 M/uL (4.70-6.10); White Blood Count 11.93 K/ul (4.8-10.8)
[2023-11-06 05:20] LABS: BUN Creatinine Ratio 13.1 (10-20); Calcium 9.2 mg/dl (8.6-10.3); Creatinine Clr Calc Pharmacy 79.3 ml/min; Est GFR (African American) 63.3 ml/min; Est GFR (Non-African American) 54.6 ml/min; Potassium 3.8 mmol/L (3.5-5.1)
--- NOTE | 2023-11-06 07:52 | Critical Care Progress Note ---
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 -- New onset seizure Seen on 11/05/[address] 11/05/2023 showed no edema or hemorrhagic conversion -- Acute stroke Continue with aspiration precautions Continue with dual antiplatelet therapy Neurology on board -- CKD Continue to monitor BUNs/creatinine --Stenosis of the right posterior cerebral artery --Prophylaxis VTE: IPC GI: None Lines: Peripheral Diet: Cardiac Plan: In/out: DC Coreg given the episodic bradycardia going into the low 50s. Continue lisinopril 10 mg to maintain SBP around 150-160 and MAP in the 100 Hemodynamically stable to be downgraded to medical floor Please note the above document was generated using voice recognition software. It may contain grammatical, syntax or spelling errors.Any formal questions or concerns about the content, text or information contained within the body of this dictation should be directly addressed to the provider for clarification. Admission and Anticipated Discharge Date Admission Date: November 03, 2023 Subjective Patient seen and examined at bedside. No acute distress, no adverse events overnight He was alert and answering all the questions appropriately Complain of mild nausea. Appetite is fair Denied any headache. Does have issues with his vision No chest pain, no shortness of breath No abdominal pain No seizure activity since yesterday afternoon Review of Systems 2 Review of Systems: All systems reviewed & are unremarkable except as noted in Subjective Physical Exam 2 Physical Exam: Constitutional: No acute distress HEENT: PERRLA, does have visual field deficit, was not able to follow the finger to the left/left homonymous hemianopia Respiratory system: Good air entry bilaterally, no wheeze, no rhonchi, no crackles CVS: S1-S2 positive, no murmurs or gallops Abdomen: Soft, nontender, nondistended, positive bowel sounds x4 Extremities: +2 pulses bilaterally radialis/ dorsalis pedis, no cyanosis, no edema Neuro: Awake alert oriented x3, strength right upper and right lower extremity 5/5, strength left upper extremity 4/5, left lower extremity 5/5 Psych: Normal mood and affect G/U: No Oneal Skin: no rashes, warm and dry Lymphatic: no cervical or axillary lymphadenopathy Results & Data Results & Data Vital Signs (Past 12 Hours) Vital Signs Pulse Resp BP Pulse Ox 11/06/23 00:03 72 11 L 93 11/06/23 00:00 148/85 H 11/06/23 00:00 148/85 H 11/05/23 23:54 83 13 87 L 11/05/23 23:00 158/70 H 11/05/23 23:00 158/70 H 11/05/23 23:00 158/70 H 11/05/23 23:00 56 L 9 L 91 11/05/23 22:12 55 L 13 95 11/05/23 22:01 158/95 H 11/05/23 22:01 158/95 H 11/05/23 21:27 65 13 97 11/05/23 21:16 145/95 H 11/05/23 21:15 71 17 96 11/05/23 21:03 69 10 L 97 11/05/23 21:00 135/81 11/05/23 21:00 135/81 11/05/23 20:57 72 12 92 11/05/23 20:45 141/84 H 11/05/23 20:45 141/84 H 11/05/23 20:42 68 5 L 89 L 11/05/23 20:30 168/78 H 11/05/23 20:30 168/78 H 11/05/23 20:30 168/78 H 11/05/23 20:21 58 L 11 L 96 11/05/23 20:15 155/87 H 11/05/23 20:15 155/87 H 11/05/23 20:15 155/87 H 11/05/23 20:09 61 12 93 11/05/23 20:06 88 17 97 11/05/23 20:00 175/89 H Laboratory Results 11/06/23 04:48 11/06/23 04:48 Coding Level of Care Code 37447 SUB INP/OBS CARE 3/50MIN Diagnoses Hypertensive urgency I16.0 Hypertension I10 Acute left-sided weakness R53.1 Hemianopia, homonymous, left H53.462 Acute CVA (cerebrovascular accident) I63.9 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
--- NOTE | 2023-11-06 08:08 | Neurology Progress Note ---
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 He had some sleepiness which was a result of this somewhat large stroke. MRI November 02, did not show any significant edema. Patient has had some CT scans of the head including, most recently 11-04, showing no increased stroke, hemorrhage, or obvious edema. The patient had severe hypertension which is likely the etiology of this stroke. He has mild anemia, mildly elevated glucose, but no history of cigarette smoking, heart disease, or dyslipidemia. Since admission his blood pressure has been treated and dropped to a low of 122/70 on 11-04. he became symptomatic and had several brief generalized seizures. The generalized nature of the seizures likely reflects a generalized origin secondary to hypotension as opposed to the stroke itself. In addition, there was no electrolyte imbalance or infectious cause present. He has had no further seizures. Recommendations: 1. Continue dual antiplatelet therapy with 81 mg aspirin daily and Brilinta 90 mg twice daily, for 3 to 4 weeks. Likely will switch to 1 antiplatelet medication after 3 to 4 weeks. 2. Control blood pressure as you are doing, aiming for a mean arterial pressure of 95-100 3. Continue atorvastatin 40 mg daily.. With his very large stroke he is at higher risk for hemorrhagic transformation. Also his total cholesterol was only 155. 4. Continue levetiracetam set up a day milligrams IV twice daily (convert to p.o. when able). 5. Continue CPAP as needed. The patient may have an underlying sleep apnea condition and need CPAP at night. 6. Physical, occupational, and speech therapy consults. 7. Increase activity as able and see if we can get him out of bed to chair. . 8. Follow-up as an outpatient in 3 to 4 weeks with neurology PA 9. Patient needs a PCP Overall, I spent a total of 50 minutes with this case including review of records, direct evaluation of patient at bedside, report generation, and discussion of the case with the patient and RN at bedside, and Dr Vance, including differential diagnosis and treatment options. Admission and Anticipated Discharge Date Admission Date: November 03, 2023 Subjective Patient is feeling better. He has no headache this morning. He is lightheaded when he sits up but there is no vertigo. He denies pain or numbness in the arms or legs, but admits to left arm and leg weakness. He has some low back pain lying in bed , but this is a chronic issue for him. Nursing reports no further seizures. CBC reveals a mildly elevated white count. CMP is unremarkable except for a increased creatinine. Blood pressure was 148/85 overnight Results & Data Vital Signs (Past 12 Hours) Vital Signs Pulse Resp BP Pulse Ox 11/06/23 00:03 72 11 L 93 11/06/23 00:00 148/85 H 11/06/23 00:00 148/85 H 11/05/23 23:54 83 13 87 L 11/05/23 23:00 158/70 H 11/05/23 23:00 158/70 H 11/05/23 23:00 158/70 H 11/05/23 23:00 56 L 9 L 91 11/05/23 22:12 55 L 13 95 11/05/23 22:01 158/95 H 11/05/23 22:01 158/95 H 11/05/23 21:27 65 13 97 11/05/23 21:16 145/95 H 11/05/23 21:15 71 17 96 11/05/23 21:03 69 10 L 97 11/05/23 21:00 135/81 11/05/23 21:00 135/81 11/05/23 20:57 72 12 92 11/05/23 20:45 141/84 H 11/05/23 20:45 141/84 H 11/05/23 20:42 68 5 L 89 L 11/05/23 20:30 168/78 H 11/05/23 20:30 168/78 H 11/05/23 20:30 168/78 H 11/05/23 20:21 58 L 11 L 96 11/05/23 20:15 155/87 H 11/05/23 20:15 155/87 H 11/05/23 20:15 155/87 H 11/05/23 20:09 61 12 93 Exam (Neuro) Physical Exam: He is awake and alert this morning with normal speech without aphasia or dysarthria. EOM are intact without nystagmus. He has a dense/complete left homonymous hemianopia. there is no facial droop and tongue is midline. There is a drift on the left with left hand clumsiness. Motor strength is 4/5 diffusely in the left arm Strength is 5/5 in the left leg with some distal clumsiness. The right arm and leg are 5/5 diffusely. Reflexes are 2/4 in all four limbs, with downgoing toes on the right. 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
[2023-11-06 08:17] LABS: Magnesium 2.3 mg/dl (1.7-2.4)
[2023-11-06] MEDS ORDERED: lisinopril 10 MG TAB PO SCH (09:00)
--- NOTE | 2023-11-06 14:56 | Hospitalist Progress Note ---
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 - Case was reviewed by [facility] [place]. Recommended aspirin and Brilinta and DAPT load, and atorvastatin. - CTAhead and neck: Moderate to severe narrowing within the proximal right MEDIA PRODUCTION MANAGER with focal area of occlusion, diminished perfusion within mid to distal right MEDIA PRODUCTION MANAGER corresponds to acute right MEDIA PRODUCTION MANAGER infarct. - CThead: Acute right MEDIA PRODUCTION MANAGER infarct - Chest x-ray: No acute findings - MRI brain: large acute R MEDIA PRODUCTION MANAGER territory involved. Recommended to have repeat CT in 24 hours from aspirin/Brilinta load to reevaluate for any hemorrhagic transformation. Also recommended hypercoagulable panel including homocystine. - Echo revealed no intra-arterial shunt, left ventricular systolic function low normal, EF= 5055%. - Lipid panel WNL. Hgb A1c 6.1%. Toxicology screen negative. - Hypercoag panel ordered, pending. - Speech consulted - patient passed dysphagia screen. PT/OT pending - Neurology consulted, appreciate recommendations - reviewed in note 11/05 - Patient was transferred to the ICU 11/03 due to hypertensive urgency requiring nicardipine drip, had generalized seizure when relatively hypotensive systolic 120 on 11/04 - Repeat CThead 11/03 & 11/04 stable without hemorrhagic transformation - Continue aspirin 81 mg daily, ticagrelor 90 mg twice daily - Atorvastatin dose reduced from 80 mg to 40 mg daily per neurology's recommendations given his total cholesterol of 155 - continue po keppra - MAP goal 105-110. 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 still seems sleepy but definitely less so today. headache resolved. LLE weakness improved Physical Exam 2 Physical Exam: PHYSICAL EXAMINATION Last 24h vital signs reviewed, see documentation in flowsheet General: sleeping but aroused to voice HEENT: Normocephalic, atraumatic, pupils round and equal moist mucus membranes Lungs: Normal respiratory effort. Clear to auscultation bilaterally. No RRW Heart: Regular rate and rhythm, no murmurs. No JVD Abdomen: Soft, nontender, nondistended. Bowel sounds present. Extremities: Warm, dry, well-perfused. No extremity edema. Neuro: mildly sleepy but more awake today, gave short verbal responses that were appropriate, PERRL, EOMI, left-sided visual field deficit by confrontation unchanged, left upper extremity pronator drift. LLE weakness 4/5 all muscle groups Psych: calm, no agitation Results & Data Results & Data Vital Signs (Past 12 Hours) Vital Signs Temp Pulse Resp BP Pulse Ox O2 Del Method 11/06/23 12:00 36.8 C 94 H 20 146/101 H 97 Room Air 11/06/23 09:42 85 16 142/102 H 95 Room Air 11/06/23 08:00 36.6 C 64 14 178/98 H 97 Room Air Laboratory Results 11/06/23 04:48 11/06/23 04:48 PG Care Time/CCT Total # of Minutes Spent Total Time Spent with Patient: Total time spent is greater than 50% in coordination of care (as documented) at patient's floor/unit and/or counseling patient: Coding Level of Care Code 96901 SUB INP/OBS CARE 3/50MIN Diagnoses Ischemic cerebrovascular accident (CVA) I63.9 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
[2023-11-06] MEDS: carvediloL 3.125 MG TAB PO SCH (15:47)
[2023-11-06] MEDS: ENOXAPARIN INJ 40 MG/0.4 ML SYR SQ SCH (15:47)
[2023-11-07 07:06] LABS: BUN Creatinine Ratio 14.8 (10-20); Calcium 9.2 mg/dl (8.6-10.3); Creatinine Clr Calc Pharmacy 81.4 ml/min; Est GFR (African American) 65.8 ml/min; Est GFR (Non-African American) 56.8 ml/min; Potassium 3.9 mmol/L (3.5-5.1)
[2023-11-07] MEDS: ACETAMINOPHEN 500 MG TAB PO PRN (07:59)
[2023-11-07] MEDS: carvediloL 6.25 MG TAB PO SCH (09:12)
--- NOTE | 2023-11-07 10:11 | Hospitalist Progress Note ---
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 - Case was reviewed by [facility] neurosurgery. Recommended aspirin and Brilinta and DAPT load, and atorvastatin. - CTAhead and neck: Moderate to severe narrowing within the proximal right SECURITY FLEX UTILITY OFFICER with focal area of occlusion, diminished perfusion within mid to distal right SECURITY FLEX UTILITY OFFICER corresponds to acute right SECURITY FLEX UTILITY OFFICER infarct. - CThead: Acute right SECURITY FLEX UTILITY OFFICER infarct - Chest x-ray: No acute findings - MRI stat obtained. Large acute R SECURITY FLEX UTILITY OFFICER territory involved. Recommended to have repeat CT in 24 hours from aspirin/Brilinta load to reevaluate for any hemorrhagic transformation. Also recommended hypercoagulable panel including homocystine. - Echo revealed no intra-arterial shunt, left ventricular systolic function low normal, EF= 5055%. - Lipid panel WNL. Hgb A1c 6.1%. Toxicology screen negative. - Hypercoag panel ordered, pending. - Speech consulted - patient passed dysphagia screen. - Neurology consulted, appreciate recommendations. - Patient was transferred to the ICU 11/03-11/04 due to hypertensive urgency requiring nicardipine drip. he has some cerebral edema related to the stroke and was observed closely in ICU during this time. - follow-up head CTs x 2 with no hemorrhage, no midline shift. he had a generalized seizure 11/04 during a time when his blood pressure was overcontrolled with systolic of 120, no further seizures - Continue aspirin 81 mg daily, ticagrelor 90 mg twice daily - Atorvastatin dose reduced from 80 mg to 40 mg daily per neurology's recommendations given his total cholesterol of 155 - Continue carvedilol, lisinopril was held after creatinine increased by 0.5 - continue Keppra 750 mg twice daily but change to p.o. 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: Plan: As noted (3) Acute kidney injury: Plan: Mild DENIS, Cr lupillo from 1.25 --> 1.6 -hold lisinopril, stop toradol -Cr slightly improved today -consider trialing on TAYO again in 1-2 weeks Plan Nicotine dependence with withdrawal - usually 1 can of dip a day -nicotine patch, counseled cessation 11/06 DVT ppx - enoxaparin I updated his SO at bedside 11/06 Admission and Anticipated Discharge Date Admission Date: November 03, 2023 Pradeep Sun is still a bit sleepy but generally continues to improve, his left-sided strength is at least 4 out of 5 at this time though he has some significant neglect left-sided visual field deficit remains dense and unchanged, headache is much improved compared to 2 days ago now intermittent, no further seizures Physical Exam 2 Physical Exam: PHYSICAL EXAMINATION Last 24h vital signs reviewed, see documentation in flowsheet General: more awake and alert HEENT: Normocephalic, atraumatic, pupils round and equal moist mucus membranes Lungs: Normal respiratory effort. Clear to auscultation bilaterally. No RRW Heart: Regular rate and rhythm, no murmurs. No JVD Abdomen: Soft, nontender, nondistended. Bowel sounds present. Extremities: Warm, dry, well-perfused. No extremity edema. Neuro: AOx4, much more alert and conversational, PERRL, EOMI, left-sided visual field deficit by confrontation unchanged, left upper extremity pronator drift. LLE weakness 4/5 all muscle groups - unchanged except that left upper extremity strength in left lower extremity extending seems somewhat improved he is mildly weak with dorsi flexion left foot especially Psych: calm, no agitation Results & Data Results & Data Vital Signs (Past 12 Hours) Vital Signs Temp Pulse Resp BP BP Pulse Ox O2 Del Method 11/07/23 08:25 36.4 C L 75 18 171/96 H 95 Room Air 11/07/23 03:27 36.9 C 69 18 158/94 H 98 Room Air 11/06/23 22:12 37.0 C 82 17 160/96 H 99 Room Air Laboratory Results 11/06/23 04:48 11/07/23 05:46 PG Care Time/CCT Total # of Minutes Spent Total Time Spent with Patient: Total time spent is greater than 50% in coordination of care (as documented) at patient's floor/unit and/or counseling patient: Coding Level of Care Code 10371 SUB INP/OBS CARE Diagnoses Ischemic cerebrovascular accident (CVA) I63.9 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
[2023-11-07] MEDS: NICOTINE 14 MG/24 HR PATCH TD SCH (11:59)
[2023-11-07] MEDS: levETIRAcetam 250 MG TAB PO SCH (19:47)
[2023-11-08 00:12] LABS: PTT LA Screen 38 sec (<=40)
[2023-11-08 08:31] LABS: Calcium 8.9 mg/dl (8.6-10.3); Potassium 3.8 mmol/L (3.5-5.1)
[2023-11-08 08:37] LABS: BUN Creatinine Ratio 15.6 (10-20); Creatinine Clr Calc Pharmacy 89.3 ml/min; Est GFR (African American) 73.8 ml/min; Est GFR (Non-African American) 63.6 ml/min
--- NOTE | 2023-11-08 08:40 | Neurology Progress Note ---
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 He had some sleepiness which was a result of this somewhat large stroke. Currently, he does not have any general sleepiness or altered mental status, although levetiracetam does make him quite fatigued/sleepy MRI November 02, did not show any significant edema. Patient had CT scans of the head, most recently 11-04, showing no increased stroke, hemorrhage, or obvious edema. The patient had severe hypertension which is likely the etiology of this stroke. He has mild anemia, mildly elevated glucose, but no history of cigarette smoking, heart disease, or dyslipidemia. Since admission his blood pressure has been treated and dropped to a low of 122/70 on 11-04. he became symptomatic and had several brief generalized seizures. The generalized nature of the seizures likely reflects a generalized origin secondary to hypotension as opposed to the stroke itself. In addition, there was no electrolyte imbalance or infectious cause present. He has had no further seizures. His blood pressure is improving slowly over time Recommendations: 1. Continue dual antiplatelet therapy with 81 mg aspirin daily and Brilinta 90 mg twice daily, for 3 to 4 weeks. Likely will switch to 1 antiplatelet medication after 3 to 4 weeks. 2. Control blood pressure as you are doing, aiming for a mean arterial pressure of 95-100 3. Continue atorvastatin 40 mg daily.. With his very large stroke he is at higher risk for hemorrhagic transformation. Also his total cholesterol was only 155. 4. Decrease levetiracetam to 500 mg twice daily. Ideally he could take, for example, 1000 mg levetiracetam ER once daily in the evening (this is a 24-hour release product, but I do not believe it is hospital formulary). 5. Continue CPAP as needed. The patient may have an underlying sleep apnea condition and need CPAP at night. 6. Physical, occupational, and speech therapy consults. 7. Increase activity as able and see if we can get him out of bed to chair. . 8. Follow-up as an outpatient in 3 to 4 weeks with neurology PA 9. Patient needs a PCP Overall, I spent a total of 35 minutes with this case including review of records, direct evaluation of patient at bedside, report generation, and discussion of the case with the patient, miladis, and RN at bedside, and Dr Ortiz, including differential diagnosis and treatment options. Admission and Anticipated Discharge Date Admission Date: November 03, 2023 Subjective He is feeling much better. He thought he could see an arm moving in his visual field off to the left but otherwise feels he does not see much to the left ("big blank"). He has a mild right posterior/occipital headache currently although this is typical in the mornings for him over time. He denies weakness or numbness He does, however, report that levetiracetam makes him very sleepy each time he takes it. Nursing reports no new issues. Blood pressure this morning was 171/86 and he is afebrile Results & Data Vital Signs (Past 12 Hours) Vital Signs Temp Pulse Resp BP BP Pulse Ox O2 Del Method 11/08/23 03:59 36.9 C 52 L 17 171/86 H 98 Room Air 11/07/23 22:26 36.8 C 69 16 167/96 H 99 Room Air Exam (Neuro) Physical Exam: He is sitting up in bed with good stance, legs dangling, alert and fairly well oriented. Mood is reasonable and affect is appropriate. Speech is without aphasia or dysarthria Extraocular eye muscles are intact without nystagmus. He has decreased vision to the left in both eyes. Tongue is midline and there is no facial droop Coordination is normal in the arms without tremor or ataxia. Strength is 5/5 diffusely in all major muscle groups in the arms and legs both proximally and distally. 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
--- NOTE | 2023-11-08 16:03 | Hospitalist Progress Note ---
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 - Case was [place] by [facility] [place]. Recommended aspirin and Brilinta and DAPT load, and atorvastatin. - CTAhead and neck: Moderate to severe narrowing within the proximal right WHOLESALE REPRESENTATIVE with focal area of occlusion, diminished perfusion within mid to distal right WHOLESALE REPRESENTATIVE corresponds to acute right WHOLESALE REPRESENTATIVE infarct. - CThead: Acute right WHOLESALE REPRESENTATIVE infarct - Chest x-ray: No acute findings - MRI stat obtained. Large acute R WHOLESALE REPRESENTATIVE territory involved. Recommended to have repeat CT in 24 hours from aspirin/Brilinta load to reevaluate for any hemorrhagic transformation. Also recommended hypercoagulable panel including homocystine. - Echo revealed no intra-arterial shunt, left ventricular systolic function low normal, EF= 5055%. - Lipid panel WNL. Hgb A1c 6.1%. Toxicology screen negative. - Hypercoag panel ordered, pending. - Speech consulted - patient passed dysphagia screen. - Neurology consulted, appreciate recommendations. discussed with Dr. Hebert 11/07, follow-up with neurology PA in clinic in 2 to 3 weeks, will reduce Keppra dose - Patient was transferred to the ICU 11/03-11/04 due to hypertensive urgency requiring nicardipine drip. he has some cerebral edema related to the stroke and was observed closely in ICU during this time. - follow-up head CTs x 2 with no hemorrhage, no midline shift. he had a generalized seizure 11/04 during a time when his blood pressure was overcontrolled with systolic of 120, no further seizures - Continue aspirin 81 mg daily, ticagrelor 90 mg twice daily - continue DAPT for 3-4 weeks then likely reduce to 1 antiplatelet medicine - Atorvastatin dose reduced from 80 mg to 40 mg daily per neurology's recommendations given his total cholesterol of 155 - Continue carvedilol, resume lisinopril at 5 mg daily dose tomorrow morning, monitor renal function with BMP - continue Keppra decreased to 500 mg twice daily, can potentially reduce to 250 twice daily in 3 to 4 days if tolerating as discussed with neurology. 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 baseline seems to be about 1.2-1.4 - resume lisinopril at lower dose 5 mg every morning - monitor BMP Plan Nicotine dependence with withdrawal - usually 1 can of dip a day -nicotine patch, counseled cessation 11/06 DVT ppx - enoxaparin I updated his SO at bedside 11/06, 11/07 Admission and Anticipated Discharge Date Admission Date: November 03, 2023 Subjective Dino has been improving his left leg still feels very heavy and weak but arm is definitely stronger, his visual field deficit on the left side is unchanged, he reported he really got a workout with PT and OT today and he walked down to the elevators and back. continues to be sleepy and really feels the Keppra dose puts him out Physical Exam 2 Physical Exam: PHYSICAL EXAMINATION Last 24h vital signs reviewed, see documentation in flowsheet General: sleeping on bed but aroused easily to voice HEENT: Normocephalic, atraumatic, pupils round and equal moist mucus membranes Lungs: Normal respiratory effort. Clear to auscultation bilaterally. No RRW Heart: Regular rate and rhythm, no murmurs. No JVD Abdomen: Soft, nontender, nondistended. Bowel sounds present. Extremities: Warm, dry, well-perfused. No extremity edema. 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 LLE weakness 4/5 all muscle groups - left lower extremity seems stronger at hip flexor and also with dorsi flexion Psych: calm, no agitation Results & Data Results & Data Vital Signs (Past 12 Hours) Vital Signs Temp Pulse Pulse Resp BP BP Pulse Ox 11/08/23 10:50 36.9 C 76 19 159/92 H 98 11/08/23 07:45 36.7 C 67 18 177/93 H 98 11/08/23 07:45 45 L 11/08/23 03:59 36.9 C 52 L 17 171/86 H 98 O2 Del Method 11/08/23 10:50 Room Air 11/08/23 07:45 Room Air 11/08/23 07:45 11/08/23 03:59 Room Air Laboratory Results 11/06/23 04:48 11/08/23 07:20 PG Care Time/CCT Total # of Minutes Spent Total Time Spent with Patient: Total time spent is greater than 50% in coordination of care (as documented) at patient's floor/unit and/or counseling patient: Coding Level of Care Code 12861 SUB INP/OBS CARE 2/35MIN Diagnoses Ischemic cerebrovascular accident (CVA) I63.9 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
[2023-11-08] MEDS: levETIRAcetam 500 MG TAB PO SCH (20:06)
[2023-11-09 07:48] VITALS: BP 159/83; PULSE 65; RESP 16; TEMP 97.7; O2SAT 100
[2023-11-09] MEDS: lisinopril 5 MG TAB PO SCH (09:16)
--- NOTE | 2023-11-09 11:43 | Discharge Summary ---
Discharge Summary Date of Service November 09, 2023 Principal Dx & Hospital Course #1 = Principal Diagnosis (1) Ischemic cerebrovascular accident (CVA): Acute large territory R FREIGHT HANDLER CVA - Patient presented with 1 day of left arm weakness and left-sided numbness which began at 10 AM 11/02/2023, over 24 hours prior to admission. Outside of the time window for thrombolytics. - Case was reviewed by [facility]. Recommended aspirin and Brilinta and DAPT load, and atorvastatin. - CTAhead and neck: Moderate to severe narrowing within the proximal right FREIGHT HANDLER with focal area of occlusion, diminished perfusion within mid to distal right FREIGHT HANDLER corresponds to acute right FREIGHT HANDLER infarct. - CThead: Acute right FREIGHT HANDLER infarct - Chest x-ray: No acute findings - MRI brain: Large acute R FREIGHT HANDLER territory involved. - neurosurgery recommended repeat CT in 24 hours from aspirin/Brilinta load to reevaluate for any hemorrhagic transformation. Also recommended hypercoagulable panel including homocystine. - Echo revealed no intra-arterial shunt, left ventricular systolic function low normal, EF= 5055%. - Lipid panel WNL. Hgb A1c 6.1%. Toxicology screen negative. - Hypercoag panel ordered, pending. - Speech consulted - patient passed dysphagia screen. - Neurology consulted - Patient was transferred to the ICU 11/03-11/04 due to hypertensive urgency requiring nicardipine drip. He had some cerebral edema related to the stroke, was somnolent, and was observed closely in ICU during this time. - follow-up head CTs x 2 with no hemorrhage, no midline shift. he had a generalized seizure 11/04 during a time when his blood pressure was overcontrolled with systolic of 120, was loaded on Keppra, no further seizures plan: - Continue aspirin 81 mg daily, ticagrelor 90 mg twice daily - continue DAPT for 3-4 weeks then likely reduce to 1 antiplatelet medicine - Atorvastatin dose reduced from 80 mg to 40 mg daily per neurology's recommendations given his total cholesterol of 155 - continue Keppra decreased to 500 mg twice daily 11/07, can potentially reduce to 250 twice daily in 3 to 4 days if tolerating as discussed with neurology. seems to be very tired after Keppra doses. can change to once daily extended release at bedtime for discharge to minimize fatigue, not available on hospital formulary. - Slowly normalize blood pressure over 1-2 weeks continue carvedilol, lisinopril at 5 mg daily dose resumed 11/08 - note that he had creatinine increase with lisinopril early in hospital course but had been dosed at 10 mg twice daily, recommend repeat BMP early next week to monitor renal function - consider replacing carvedilol with amlodipine since he has been quite tired - Follow-up with neurology PA as outpatient in 34 weeks - Follow up with an amusement park worker after discharge for formal visual field testing. No driving. - he will significantly benefit from inpatient rehab - ongoing deficits include L homonomous hemianopsia, LUE LLE 4/5 weakness, L sided numbness face/arm/leg, L sided neglect. 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 baseline seems to be about 1.2-1.4 - resumed lisinopril at lower dose 5 mg every morning - monitor BMP Plan Nicotine dependence with withdrawal - usually 1 can of dip a day -nicotine patch, counseled cessation 11/06 I updated his SO at bedside 11/06, 11/07, 11/08 Notes For Next Care Provider BMP Saturday to check Cr For tiredness - can reduce keppra after weekend if no further seizures. consider replacing carvedilol with amlodipine Medication Changes From Visit all meds are new Admission HPI Per Admitting Provider Per sign Dino is a 38-year-old male who takes no medications at baseline who presented with 1 day of left arm weakness and left-sided numbness which began at 10 AM 11/02/2023, over 24 hours prior to admission. No chest pain, chest pressure, shortness of breath, dyspnea. Does some transient right eye discomfort which has passed. Presents for evaluation of possible stroke. Per patient: BP generaly very high,normally 170s. Often 180s-190s when he checks it at home. Last 24 hours been in the 200s persistently. Reports last night he developed R vision change, then had weakness in his arm and leg around 8pm. Very fatigued. +cold and clammy last night. No fevers. has been cold under two blankets. Went to sleep felt a little better from a headache overnight, but was still weak this AM and came to the hospital. Has had tingling in his left leg which feels like it as a burning quality and extends down to the dorsal foot. Trace headache since being here, bad headache last night which improved overnight took tylenol last night which helped Denies chest pain, chest pressure denies cough. Denies sinus congestion. Denies nausea/vomiting/diarrhea Has not taken any aspirin or plaavix. Reports he did nto take any aspirin prehospital No fhx strokes. +hx of 'heart issues which was ablated, thinks Afib' in his mother No hx DM. Denies personal history of CKD Denies family history of strokes, DM, CKD Endorses tobacco abuse as noted below Does not see or follow-up with a PCP Initially with 2-3/5 shoulder flexion, imparied hip flexion. now miguel 5/5 but Medical History: Reviewed Medications: Reviewed Surgical History: Reviewed Family history: Reviewed Allergies: Reviewed. NKDA. Social History: Dips, 1 can per 2 days. No recreational drugs or ETOH use. Code Status: Full Discharge Exam PHYSICAL EXAMINATION Last 24h vital signs reviewed, see documentation in flowsheet General: sitting up on EOB HEENT: Normocephalic, atraumatic, pupils round and equal moist mucus membranes Lungs: Normal respiratory effort. Clear to auscultation bilaterally. No RRW Heart: Regular rate and rhythm, no murmurs. No JVD Abdomen: Soft, nontender, nondistended. Bowel sounds present. Extremities: Warm, dry, well-perfused. No extremity edema. Neuro: AOx4, alert and conversational, PERRL, EOMI, left-sided visual field deficit to midpoint by confrontation, left upper extremity pronator drift still present, 4/5 LUE strength. LLE weakness 4/5 all muscle groups - left lower stronger again today at hip flexor and also with dorsi flexion Psych: calm, no agitation Discharge Plan Discharge Items Patient Disposition: Transfer Inpatient Rehab Fac Reason For Visit: CVA Discharge Diagnosis: acute stroke Activity: Per Instructions section Driving/Machine Use: No driving Non-emergency contact: Primary Care Provider Call non-emergency contact if: you have any medication questions and your symptoms worsen Follow-up/Referrals: PCP,NO [Primary Care Provider] - Diet: Heart Healthy Addtl Attending Provider Instructions: PT and OT evaluate and treat No driving/operating heavy machinery because of significant left sided vision loss Schedule follow up with amusement park worker for formal visual field testing after discharge Schedule follow up with PA at [facility] neurology clinic in 3-4 weeks May reduce keppra dose to 250 mg bid in 3-4 days if still sleepy and no further seizure May change keppra to extended release at HS if available to help with sleepiness (not available on hospital formulary) BMP on Saturday - check Cr, restarted lisinopril Permissive hypertension Adjust BP meds to normalize BP over next 1-2 weeks Pending Studies at Discharge: Yes (hypercoagulable panel) Stand-Alone Forms: My [facility], Medications to Prevent Stroke Skilled Items Patient informed of condition?: Yes DNR: No Discharge Level of Care: Acute rehab Communicable Disease: No Discharge Prognosis: Improving Lines: None Urinary Catheter: No Medications and DC Order Prescriptions: New Brilinta 90 mg Tablet 90 mg PO BID Qty: 0 0RF atorvastatin 40 mg Tablet 40 mg PO QAM Qty: 0 0RF acetaminophen [Tylenol Extra Strength] 500 mg Tablet 1,000 mg PO Q8H PRNQty: 0 0RF carvedilol 6.25 mg Tablet 6.25 mg PO BIDM Qty: 0 0RF levetiracetam [Keppra] 500 mg Tablet 500 mg PO BID Qty: 0 0RF aspirin 81 mg Tablet,Delayed Release (Dr/Ec) 81 mg PO QAM Qty: 0 0RF nicotine 7 mg/24 hr Patch 24 Hour 1 patch transdermal QAM Qty: 0 0RF lisinopril [Zestril] 5 mg Tablet 5 mg PO QAM Qty: 0 0RF No Action No Known Home Medications Discharge Orders: Discharge Order (Routine); Ordered 11/09/23 Ordered By: Yudy Jackson/Other Patient Handouts: Prediabetes Admission Data Admit Date/Time: 11/03/23 19:09 Attending Provider: Yudy Ortiz Admit Provider: Padilla Adler Primary Care Provider: PCP,NO [facility] Padilla [facility]; Hunter Morales; Michaela Alves Hospital Stay Data Consultations 11/03/23 16:15 ED Decision to Admit Stat 11/03/23 21:34 Consult Neurology Routine 11/04/23 11:18 Consult Hospital Unit Clerk Routine Diagnostic Imagining Performed 11/03/23 13:22 CT angio head w con Stat CT angio neck with con Stat CT head/brain wo con Stat 11/03/23 18:02 MR brain wo con Stat 11/04/23 18:00 CT head/brain wo con Routine 11/05/23 09:25 CT head/brain wo con Urgent Chest X-Ray 11/03/23 13:22 XR chest 1V portable HISTORY: neuro deficit, acute stroke suspected COMPARISON: None. FINDINGS: No pneumothorax. No pleural effusions. The heart is mildly enlarged. The lungs are clear. No evidence for pulmonary edema. No acute fractures. IMPRESSION: Mild cardiomegaly. Otherwise, no acute process within the chest. ACT 112: Negative or not required by law. Electronically signed by: Arnulfo Mccarthy M.D. 11/03/2023 3:[address] 11/03/23 13:[address] DOSE: 1378.48 mGy.cm HISTORY: Left-sided numbness. neuro deficit, acute stroke suspected TECHNIQUE: Multiaxial CT images of the head were performed without the use of intravenous contrast. Automated exposure control was utilized for this study. A dose lowering technique was utilized adhering to the principles of ALARA. Comparison: None. Findings: The paranasal sinuses and mastoid air cells are clear. Mild motion artifact. The calvarium and skull base are intact. There is no mass, hematoma, or midline shift. The ventricles are normal in size. There is a large hypodense area involving the majority of the posterior medial aspect of the right temporal lobe and right occipital lobe. This measures approximately 7.9 x 3.6 cm and is consistent with a right FREIGHT HANDLER territory infarct Impression: 1. An acute right FREIGHT HANDLER territory infarct. 2. No intracranial hemorrhage or midline shift. ACT 112: Negative or not required by law. Electronically signed by: Arnulfo Mccarthy M.D. 11/03/2023 3:37 PM Head CTA 11/03/23 13:22 HEAD & NECK CTA HISTORY: Left-sided weakness neuro deficit, acute stroke suspected TECHNIQUE: Multiaxial CT images of the head were performed following the intravenous administration of contrast to evaluate the major cerebral vessels. Multiaxial CT images of the neck were also performed following the intravenous administration of contrast to evaluate the major cervical vessels. 3D/MIP images were also obtained. Sagittal and coronal reformats were reviewed. A dose lowering technique was utilized adhering to the principles of ALARA. COMPARISON: Head CT 11/03/2023. FINDINGS: There is an acute right FREIGHT HANDLER territory infarct again noted. The distal vertebral arteries, basilar artery, and intracranial internal carotid arteries are widely patent. The bilateral ACAs, MCAs, and left FREIGHT HANDLER show no significant stenosis, occlusion, or aneurysm. Multifocal moderate to severe narrowing within the proximal right FREIGHT HANDLER with a focal area of occlusion best seen on image 148. There is diminished perfusion within the mid to distal right FREIGHT HANDLER corresponding to the patient's right FREIGHT HANDLER territory infarct. . The major dural venous sinuses are patent. The aortic arch and proximal great vessels are widely patent. There is no significant stenosis, occlusion, or dissection identified within the bilateral common carotid, internal carotid, or vertebral arteries. IMPRESSION: 1. Multifocal moderate to severe narrowing within the proximal right FREIGHT HANDLER with a focal area of occlusion as described above. There is diminished perfusion within the mid to distal right FREIGHT HANDLER corresponding to the patient's acute right FREIGHT HANDLER territory infarct. 2. No significant stenosis, occlusion, or dissection identified within the carotid or vertebral arteries. ACT 112: Negative or not required by law. Electronically signed by: Arnulfo Mccarthy M.D. 11/03/2023 3:43 PM Neck CTA 11/03/23 13:22 HEAD & NECK CTA HISTORY: Left-sided weakness neuro deficit, acute stroke suspected TECHNIQUE: Multiaxial CT images of the head were performed following the intravenous administration of contrast to evaluate the major cerebral vessels. Multiaxial CT images of the neck were also performed following the intravenous administration of contrast to evaluate the major cervical vessels. 3D/MIP images were also obtained. Sagittal and coronal reformats were reviewed. A dose lowering technique was utilized adhering to the principles of ALARA. COMPARISON: Head CT 11/03/2023. FINDINGS: There is an acute right FREIGHT HANDLER territory infarct again noted. The distal vertebral arteries, basilar artery, and intracranial internal carotid arteries are widely patent. The bilateral ACAs, MCAs, and left FREIGHT HANDLER show no significant stenosis, occlusion, or aneurysm. Multifocal moderate to severe narrowing within the proximal right FREIGHT HANDLER with a focal area of occlusion best seen on image 148. There is diminished perfusion within the mid to distal right FREIGHT HANDLER corresponding to the patient's right FREIGHT HANDLER territory infarct. . The major dural venous sinuses are patent. The aortic arch and proximal great vessels are widely patent. There is no significant stenosis, occlusion, or dissection identified within the bilateral common carotid, internal carotid, or vertebral arteries. IMPRESSION: 1. Multifocal moderate to severe narrowing within the proximal right FREIGHT HANDLER with a focal area of occlusion as described above. There is diminished perfusion within the mid to distal right FREIGHT HANDLER corresponding to the patient's acute right FREIGHT HANDLER territory infarct. 2. No significant stenosis, occlusion, or dissection identified within the carotid or vertebral arteries. ACT 112: Negative or not required by law. Electronically signed by: Arnulfo Mccarthy M.D. 11/03/2023 3:43 PM Brain MRI 11/03/23 18:02 Brain MRI WITHOUT CONTRAST HISTORY: Acute ischemic stroke TECHNIQUE: Multiplanar multisequence MRI of the brain was performed without the use of contrast. COMPARISON STUDY: Head CT 11/03/2023. FINDINGS: There is a large area of restricted diffusion involving the posterior medial aspect of the right temporal lobe, medial aspect of the right occipital lobe, and extension into the right thalamus consistent with an acute right FREIGHT HANDLER territory infarct. The area of restricted diffusion measures approximately 9.1 x 3.0 cm. The midline structures are intact. There is no mass, midline shift, or acute hemorrhage. The major vascular flow-voids at the skull base are maintained. Mild mucosal thickening within the left ethmoid air cells. The orbits are unremarkable. The mastoid air cells are clear. There is associated cytotoxic edema involving the right FREIGHT HANDLER territory infarct resulting in mild mass effect along the temporal horn of the right lateral ventricle. IMPRESSION: Acute right FREIGHT HANDLER territory infarct as described above. ACT 112: Negative or not required by law. Electronically signed by: Arnulfo Mccarthy M.D. 11/03/2023 6:[address] 11/04/23 18:00 CT SCAN OF THE BRAIN WITHOUT IV CONTRAST CLINICAL HISTORY: Follow-up stroke COMPARISON STUDY: CT and MRI of the brain dated 11/03/2023 TECHNIQUE: Unenhanced axial CT scan of the brain is performed from the vertex to the skull base. A dose lowering technique was utilized adhering to the principles of ALARA. CT DOSE: 625.8 mGy.cm FINDINGS: Brain parenchyma: Again seen is loss of lucas-white matter differentiation throughout the right FREIGHT HANDLER territory consistent with a subacute/evolving infarct. No hemorrhage is identified. There is mild localized mass effect/edema. There is no midline shift. A subacute lacunar infarct is noted in the right thalamus. No new foci of ischemia are suggested by CT criteria. No extra-axial fluid collection is seen. Ventricles, sulci, cisterns: Normal in configuration. Intracranial vasculature: The visualized intracranial vasculature at the skull base is normal in appearance. Calvarium: Unremarkable. Sinuses and mastoids: The visualized paranasal sinuses are clear. The mastoid air cells are well pneumatized. Orbits: The bony orbits are grossly intact. IMPRESSION: 1. Again seen is a large subacute/evolving right FREIGHT HANDLER territory infarct. 2. No hemorrhage is identified and there is no midline shift. ACT 112: Negative or not required by law. Electronically signed by: Tolu Gamboa M.D. 11/04/2023 6:[address] 11/05/23 09:25 CT SCAN OF THE BRAIN WITHOUT IV CONTRAST CLINICAL HISTORY: Follow-up stroke COMPARISON STUDY: CT and MRI of the brain dated 11/03/2023. CT of the brain dated 11/04/2023. TECHNIQUE: Unenhanced axial CT scan of the brain is performed from the vertex to the skull base. A dose lowering technique was utilized adhering to the principles of ALARA. The patient was scanned twice due to significant motion artifact. CT DOSE: 938. mGy.cm FINDINGS: Brain parenchyma: Again seen is loss of lucas-white matter differentiation throughout the right FREIGHT HANDLER territory consistent with a subacute/evolving infarct. No hemorrhage is identified. There is mild localized mass effect/edema. There is no midline shift. A subacute lacunar infarct is noted in the right thalamus. No new foci of ischemia are suggested by CT criteria. No extra-axial fluid collection is seen. Ventricles, sulci, cisterns: Normal in configuration. Intracranial vasculature: The visualized intracranial vasculature at the skull base is normal in appearance. Calvarium: Unremarkable. Sinuses and mastoids: The paranasal sinuses are clear. The mastoid air cells are well pneumatized. Orbits: The bony orbits are grossly intact. IMPRESSION: 1. Again seen is a large subacute/evolving right FREIGHT HANDLER territory infarct. 2. No hemorrhage is identified and there is no midline shift. ACT 112: Negative or not required by law. Electronically signed by: Tolu Gamboa M.D. 11/05/2023 10:06 AM 08/21/24 04:48 11/08/23 07:20 Pending Results Patient Have Any Pending Studies at Discharge: Yes (hypercoagulable panel) Discharge Instructions Given to Patient (Per Discharging Provider) PT and OT evaluate and treat No driving/operating heavy machinery because of significant left sided vision loss Schedule follow up with amusement park worker for formal visual field testing after discharge Schedule follow up with PA at [facility] neurology clinic in 3-4 weeks May reduce keppra dose to 250 mg bid in 3-4 days if still sleepy and no further seizure May change keppra to extended release at HS if available to help with sleepiness (not available on hospital formulary) BMP on Saturday - check Cr, restarted lisinopril Permissive hypertension Adjust BP meds to normalize BP over next 1-2 weeks Total Time Total Time Spent Total Time Spent (In Minutes): I personally spent: 45 minutes today on clinical care activities including: reviewing chart notes and vital signs discussion with care clinician examining and counseling the patient counseling the patient's family writing orders, discharge instructions, prescriptions documentation Coding Level of Care Code 04554 INP/OBS DISCH >30 MIN Diagnoses Ischemic cerebrovascular accident (CVA) I63.9 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
[2023-11-10 16:07] LABS: Anti Cardiolipin Ab IgG <2.0 GPL-U/mL; Anti Cardiolipin Ab IgM <2.0 MPL-U/mL; B2 Glycoprotein IgG <2.0 U/mL (<20.0); B2 Glycoprotein IgM <2.0 U/mL (<20.0)
== END 2023-11-09 14:34 | DRG 64 ==
LOC: ED 13:03 → SUATTDRO 19:09 → 2S 19:09 → 1E 11-04 11:04 → 2S 11-06 16:16 → 3N 11-08 21:22